=== PATIENT | male | born 1955 | race Caucasian/White ===

== ENCOUNTER 2019-01-10 11:43 | Outpatient (REF) | payer MEDICARE, BC, SELFPAY ==
[2019-01-10 21:48] LABS: Anion Gap 8.4 mmol/L (3-11); BUN 16 mg/dL (7-18); CO2 29.6 mmol/L (21.0-32.0); CREATININE 1.12 mg/dL (0.70-1.30); Chloride 104 mmol/L (98-107); Glucose 96 mg/dL (70-100); Potassium 4.6 mmol/L (3.5-5.1); Sodium 142 mmol/L (136-145)
== END 2019-01-10 12:03 ==
LOC: NCHCN 11:43
PROVIDERS: PCP Internal Medicine; Visit Provider Internal Medicine
DX: I10 Essential (primary) hypertension (principal)
CPT/HCPCS: 80048

== ENCOUNTER 2019-01-11 15:35 | Observation (INO) | payer MEDICARE, BC, SELFPAY ==
[2019-01-11] VITALS (69 sets, daily range): BP systolic 122–176; BP diastolic 76–139; PULSE 56–90; RESP 10–28; TEMP 36.6–36.7; O2SAT 91–99
--- NOTE | 2019-01-11 15:51 | DI.RAD_ITS ---
SYMPTOM/DIAGNOSIS: CHEST PAIN PA AND LATERAL CHEST: The heart is normal in size. The lungs are clear. The mediastinal structures and pleura appear intact. CONCLUSION: Normal chest.
--- NOTE | 2019-01-11 15:59 | ED.GENADUL_ITS ---
Discharge Plan Disposition Patient Disposition: [facility] INPATIENT Condition: Stable Discharge Details Chief Complaint: Chest Pain Clinical Impression: Chest pain, Elevated troponin, Sinus pause Admit Date/Time: 01/11/19 22:01 Admit Provider: Kaiser Chan Attending Provider: Kaiser Chan Primary Care Provider: Michael Sow ED Provider: Arely Villagomez Discharge Data Discharge Date/Time-TO BE ENTERED AT DEPARTURE: 01/11/19 23:50 Medical Decision Making Patient is a 63-year-old male with history of hypertension high cholesterol presents with substernal and left-sided chest pain that started since he awoke this morning. Denies any chest pain at present or well-being here in the ED. Vitals within normal limits. EKG notes a rate of 65, sinus with pause, no acute ST elevation or depression. Differential diagnosis includes ACS, electrolyte abnormality, anxiety, stress. Presentation does not appear consistent with PE or dissection. Will place an IV, screening labs, chest x-ray. Patient does not want to stay in the hospital. He is agreeable to stay for a 3-hour troponin. 1715 --labs and imaging reviewed. Troponin 0.1. Remainder of labs unremarkable. Chest x-ray negative. Will order a 3-hour troponin but will plan for admission overnight pending up or downtrending troponin. 1900 --second troponin 0.19. Repeat EKG unchanged. He does appear to have a sinus pause on EKG, unclear if this is a dropped QRS in front of the P wave or whether this is a PAC. Case discussed with hospitalist -reviewed rhythm strip and there appears to be concern for type II Mobitz -before excepting patient for admission, would like further discussion with [facility] cardiology. 2029 --discussed with [facility] cardiology -does not feel that the there are P waves visible where there is concern for a dropped QRS. Feels that this may be more sinus pause. If there is development of longer pauses or what appears to be a conducted P wave without a QRS, can consult cardiology again. Recommends continue telemetry monitoring and serial troponins. Discussed again with hospitalist and accepts patient for admission. Medical Records Medical records reviewed: Yes I reviewed the patient's medical records. Imaging Data Radiologic Study: Radiologist's impression: XR Chest, 2 Views EXAM DATE/TIME: 01/11/2019 3:52 PM CLINICAL HISTORY: 63 years old, male; Chest pain; Type not specified TECHNIQUE: Imaging protocol: XR of the chest Views: 2 views. COMPARISON: No relevant prior studies available. FINDINGS: Lungs: Unremarkable. No consolidation. Pleural space: Unremarkable. No pleural effusion. No pneumothorax. Heart/Mediastinum: Unremarkable. No cardiomegaly. Bones/joints: Unremarkable for patient's age. IMPRESSION: No acute findings. Lab Data Lab results reviewed: Yes I reviewed the patient's lab results. Laboratory Tests Range/Units 01/11/19 01/11/19 01/11/19 15:48 15:48 18:50 WBC (4.4-10.8) k/cumm 8.74 RBC (4.50-6.00) m/cumm 4.73 Hgb (13.5-17.5) g/dL 16.1 Hct (40.0-50.0) % 45.8 MCV (80-95) fL 96.8 H MCH (27.0-33.0) pg 34.0 H MCHC (32.0-36.0) g/dL 35.2 RDW (11.8-14.1) % 11.8 Plt Count (130-400) x1000/uL 198 MPV (8.0-11.0) fL 10.3 Immature Gran % 0.1 Neutrophils % 59.3 Lymphocytes % 27.5 Monocytes % 10.4 Eosinophils % 2.5 Basophils % 0.2 Absolute Neutrophils (1.2-6.7) k/cumm 5.18 Absolute Lymphocytes (1.2-3.4) k/cumm 2.40 Absolute Monocytes (0.11-0.7) k/cumm 0.91 H Absolute Eosinophils (0.0-0.7) k/cumm 0.22 Absolute Basophils (0.0-0.2) k/cumm 0.02 Sodium (136-145) mmol/L 141 Potassium (3.5-5.1) mmol/L 3.5 D Chloride (98-107) mmol/L 102 Carbon Dioxide (21.0-32.0) mmol/L 30.8 Anion Gap (3-11) mmol/L 8.2 BUN (7-18) mg/dL 12 Creatinine (0.70-1.30) mg/dL 1.09 Estimated GFR/1.73 m2 (mL/min/1.73m2) >= 60.00 Glucose (70-100) mg/dL 91 Calcium (8.5-10.1) mg/dL 9.1 Magnesium (1.8-2.4) mg/dL 1.8 Total Bilirubin (0.2-1.0) mg/dL 0.5 AST (15-37) U/L 18 ALT (16-63) U/L 31 Alkaline Phosphatase (46-116) U/L 49 Troponin I (0.00-0.06) ng/mL 0.10 H* 0.19 H* Total Protein (6.4-8.2) g/dL 8.0 Albumin (3.4-5.0) g/dL 4.0 Range/Units 01/11/19 21:49 WBC (4.4-10.8) k/cumm RBC (4.50-6.00) m/cumm Hgb (13.5-17.5) g/dL Hct (40.0-50.0) % MCV (80-95) fL MCH (27.0-33.0) pg MCHC (32.0-36.0) g/dL RDW (11.8-14.1) % Plt Count (130-400) x1000/uL MPV (8.0-11.0) fL Immature Gran % Neutrophils % Lymphocytes % Monocytes % Eosinophils % Basophils % Absolute Neutrophils (1.2-6.7) k/cumm Absolute Lymphocytes (1.2-3.4) k/cumm Absolute Monocytes (0.11-0.7) k/cumm Absolute Eosinophils (0.0-0.7) k/cumm Absolute Basophils (0.0-0.2) k/cumm Sodium (136-145) mmol/L Potassium (3.5-5.1) mmol/L Chloride (98-107) mmol/L Carbon Dioxide (21.0-32.0) mmol/L Anion Gap (3-11) mmol/L BUN (7-18) mg/dL Creatinine (0.70-1.30) mg/dL Estimated GFR/1.73 m2 (mL/min/1.73m2) Glucose (70-100) mg/dL Calcium (8.5-10.1) mg/dL Magnesium (1.8-2.4) mg/dL Total Bilirubin (0.2-1.0) mg/dL AST (15-37) U/L ALT (16-63) U/L Alkaline Phosphatase (46-116) U/L Troponin I (0.00-0.06) ng/mL 0.28 H* Total Protein (6.4-8.2) g/dL Albumin (3.4-5.0) g/dL ECG Data Attestation: I personally reviewed and interpreted this ECG (s) as follows: Interpretation: #1 -- rate of 65, sinus with pause, no acute ST elevation or depression, TN 132, QTc 410, QRS 94 #2 -- rate of 61, sinus with pause, no acute ST elevation or depression, TN 136, QTc 395, QRS 92. HPI General Mode of arrival: ambulatory . Date/Time Provider Initiated Documentation: 01/11/19 15:57 . Limitations to Documentation: no limitations . Information obtained by: patient . HPI Narrative: Patient is a 63-year-old male with a history of hyperlipidemia, hypertension who presents with sharp substernal chest pain and intermittent shortness of breath since this morning. He states the pain feels like pressure. He denies any pain at present. He states the pain is 6/10 at its worst. He states the pain is been better with walking around but denies any aggravating factors. He denies any symptoms at present other than fatigue. He denies fever, nausea, vomiting, diarrhea, shortness of breath, recent travel, recent surgery, leg pain or swelling. Related Data Home Medications Medication Instructions Recorded Confirmed valsartan 80 mg PO DAILY 01/29/16 01/11/19 Allergies Allergy/AdvReac Type Severity Reaction Status Date / Time No Known Allergies Allergy Unverified 02/01/16 09:19 General Stated Complaint: Chest Pain YUKO: 3 Review of Systems Review of Systems All systems reviewed & are unremarkable except as noted in HPI and below Constitutional Reports as per HPI, Denies chills and Denies fever(s) Eyes Denies blurry vision ENT Denies dizziness, Denies sore throat and Denies throat swelling Cardiovascular Reports chest pain and Denies dyspnea Respiratory Denies cough and Denies dyspnea Gastrointestinal Denies abdominal pain, Denies diarrhea and Denies vomiting Genitourinary Denies hematuria and Denies dysuria Musculoskeletal Denies back pain and Denies numbness Integumentary/Breasts Denies lesions and Denies rash Neurologic Denies dizziness, Denies focal weakness and Denies numbness Allergic/Immunologic Denies throat swelling [facility] Medical History (Updated 01/12/19 @ 10:34 by Michael Sow MD) HTN (hypertension) (Chronic) Hyperlipemia (Acute) Osteoarthritis (Chronic) Statin intolerance (Acute) Surgical History Appendectomy Colonoscopy - IV Sedation (04/19/16) Family History Mother Breast cancer Social History Smoking/Tobacco Use Status: Never Alcohol Intake: current Alcohol Intake frequency: 3 or more drinks per day Alcohol type: hard liquor Drug use: Never Substance use type: does not use Details: pt reports drinking 3 vodka drinks per day Do you feel safe at home: Yes Do you feel safe in your relationship?: Yes Exam Const General: cooperative, healthy appearing and no acute distress HENMT Head: normal to inspection Face and sinus: normal facial exam Eyes General: appearance normal, both eyes and all related structures EOM: EOM intact bilaterally Neck Neck: normal visual inspection and No submandibular swelling Lymphatic: no lymphadenopathy noted Chest Chest: normal inspection of the chest and no tenderness Resp Effort & Inspection: normal respiratory effort and able to speak in complete sentences Auscultation: clear to auscultation bilaterally Cardio Rate: regular rate Rhythm: regular rhythm GI Inspection: normal to inspection Palpation: soft, not firm, not rigid and nontender Auscultation: normal bowel sounds Male General Exam: Yes normal external exam Back/Spine/Pelvis Thoracic/Lumbar Spine: thoracic and lumbar spine normal to inspection Pelvis: no pain with anterior-posterior compression Skin General skin exam: no rashes or lesions noted Neuro General: alert, awake and oriented x3 Cognition: normal cognition Speech: speech normal Motor: muscle tone normal throughout Sensory Exam: no sensory deficits noted Extrem General: normal to inspection, full ROM, normal capillary refill, no calf tenderness bilaterally and no edema Psych Appearance: grossly normal Mental Status: mental status grossly normal Speech and Movement: speech and movement normal Affect: normal affect Course Vital Signs Temperature 97.9 F 01/11/19 15:39 Pulse 64 01/11/19 15:39 Respiratory Rate 20 01/11/19 15:39 Blood Pressure 158/97 H 01/11/19 15:39 Pulse Oximetry 96 01/11/19 15:39 Temperature 97.9 F 01/11/19 15:39 Temperature Source Temporal Artery Scan 01/11/19 15:39 Pulse 64 01/11/19 15:39 Respiratory Rate 20 01/11/19 15:39 Blood Pressure 158/97 H 01/11/19 15:39 Blood Pressure Position Sitting 01/11/19 15:39 Pulse Oximetry 96 01/11/19 15:39 Oxygen Delivery Method Room Air 01/11/19 15:39 Oxygen Flow Rate 0 01/11/19 15:39 Pain Level 0 01/11/19 15:39
[2019-01-11 16:00] LABS: Abs Immature Grans 0.01 k/cumm (0.0-0.09); Absolute Basophil Count 0.02 k/cumm (0.0-0.2); Absolute Eosinophil Count 0.22 k/cumm (0.0-0.7); Absolute Monocyte Count 0.91 k/cumm (0.11-0.7); Absolute Neutrophil Count 5.18 k/cumm (1.2-6.7); Basophils % 0.2; Eosinophils % 2.5; HCT 45.8 % (40.0-50.0); HGB 16.1 g/dL (13.5-17.5); Immature Grans % 0.1; Lymphocytes % 27.5; Mean Corp. HGB Concentration 35.2 g/dL (32.0-36.0); Mean Corpuscular Volume 96.8 fL (80-95); Mean Platelet Volume 10.3 fL (8.0-11.0); Monocytes % 10.4; Neutrophils % 59.3; Platelet Count 198 x1000/uL (130-400); RBC 4.73 m/cumm (4.50-6.00); RBC Distribution Width 11.8 % (11.8-14.1); White Blood Cell Count 8.74 k/cumm (4.4-10.8)
[2019-01-11 16:24] LABS: ALT 31 U/L (16-63); AST 18 U/L (15-37); Alkaline Phosphatase 49 U/L (46-116); Anion Gap 8.2 mmol/L (3-11); BUN 12 mg/dL (7-18); Bilirubin, Total 0.5 mg/dL (0.2-1.0); CO2 30.8 mmol/L (21.0-32.0); CREATININE 1.09 mg/dL (0.70-1.30); Calcium 9.1 mg/dL (8.5-10.1); Chloride 102 mmol/L (98-107); Glucose 91 mg/dL (70-100); Magnesium 1.8 mg/dL (1.8-2.4); Potassium 3.5 mmol/L (3.5-5.1); Sodium 141 mmol/L (136-145)
--- NOTE | 2019-01-11 16:53 | DI.VRAD_ITS ---
EXAM: XR Chest, 2 Views EXAM DATE/TIME: 01/11/2019 3:52 PM CLINICAL HISTORY: 63 years old, male; Chest pain; Type not specified TECHNIQUE: Imaging protocol: XR of the chest Views: 2 views. COMPARISON: No relevant prior studies available. FINDINGS: Lungs: Unremarkable. No consolidation. Pleural space: Unremarkable. No pleural effusion. No pneumothorax. Heart/Mediastinum: Unremarkable. No cardiomegaly. Bones/joints: Unremarkable for patient's age. IMPRESSION: No acute findings. Dictated and Authenticated by: Rosa Manzo MD. Ordering:WIHT Mcgee MD
[2019-01-11] MEDS: Aspirin 325 MG TAB (16:56)
[2019-01-11 19:16] LABS: Troponin I 0.19 ng/mL (0.00-0.06)
--- NOTE | 2019-01-11 21:00 | W.PM.HP.N ---
Date of service: 01/11/19 Time of Service: 21:00 Assessment and Plan (1) Chest pain: Current visit: Yes Status: Acute CP, story and uptrending troponins suggestive of ACS. Patient has already received ASA and remains asymptomatic at this time with normal EKG. If develops further pain or EKG changes will heparinize and plan transfer. Otherwise would advise stress testing. Elevated BP noted. Patient is somewhat anxious and will give dose Ativan. if BP remains elevated will give dose additional anti-hypertensive (pulses on monitor have frequently been in 60s so will avoid beta-jessica). History of Present Illness Chief Complaint: CP Narrative: 63 male with HTN, HLD, reports two episodes today, each lasting about 30 minutes, of a squeezing tightness in chest (uses a clenched fist to describe, so-called Townsend sign). No SOB, diaphoresis or nausea. All occurred at rest, none since arrival here. W/U in ER of note for troponin #1 of 0.10, #2 0.19. EKG with no ST-TW changes.Patient given ASA 325 and admitted for further management. Note that monitor raised question of Type 2 Mobitz but further review, and after discussion with Cardiology, it is clear that this is frequent non-conducted PACs. Review of Systems Review of Systems All systems reviewed & are unremarkable except as noted in HPI and below PFSH Medical History HTN (hypertension) (Chronic) Hx of hyperlipidemia (Acute) Osteoarthritis (Chronic) Surgical History Appendectomy Colonoscopy - IV Sedation (04/19/16) Family History Mother Breast cancer Social History Smoking/Tobacco Use Status: Never Alcohol Intake: current Alcohol Intake frequency: 3 or more drinks per day Alcohol type: hard liquor Drug use: Never Substance use type: does not use Details: pt reports drinking 3 vodka drinks per day Do you feel safe at home: Yes Do you feel safe in your relationship?: Yes Meds Home Medications Medication Instructions Recorded Confirmed Type valsartan 80 mg PO DAILY 01/29/16 01/11/19 History Allergies Allergy/AdvReac Type Severity Reaction Status Date / Time No Known Allergies Allergy Unverified 02/01/16 09:19 Exam Narrative Exam Narrative: 156/98, 85, 20, 36.6. HEENT unremarkable; neck supple without JVD; lungs clear; heart RRR w/o M/R/G; abdomen soft NT; extr: no edema pulses equal Results Labs : 01/11/19 15:48 01/11/19 15:48 Laboratory Results - last 24 hr 01/11/19 01/11/19 01/11/19 15:48 15:48 18:50 WBC 8.74 RBC 4.73 Hgb 16.1 Hct 45.8 MCV 96.8 H MCH 34.0 H MCHC 35.2 RDW 11.8 Plt Count 198 MPV 10.3 Immature Gran % 0.1 Neutrophils % 59.3 Lymphocytes % 27.5 Monocytes % 10.4 Eosinophils % 2.5 Basophils % 0.2 Absolute Neutrophils 5.18 Absolute Lymphocytes 2.40 Absolute Monocytes 0.91 H Absolute Eosinophils 0.22 Absolute Basophils 0.02 Sodium 141 Potassium 3.5 D Chloride 102 Carbon Dioxide 30.8 Anion Gap 8.2 BUN 12 Creatinine 1.09 Estimated GFR/1.73 m2 >= 60.00 Glucose 91 Calcium 9.1 Magnesium 1.8 Total Bilirubin 0.5 AST 18 ALT 31 Alkaline Phosphatase 49 Troponin I 0.10 H* 0.19 H* Total Protein 8.0 Albumin 4.0 Last Vital Signs Temp 36.6 C 01/11/19 15:39 Pulse 64 01/11/19 15:39 Resp 16 01/11/19 17:00 BP 158/97 H 01/11/19 15:39 Pulse Ox 96 01/11/19 15:39
[2019-01-11 22:23] LABS: Troponin I 0.28 ng/mL (0.00-0.06)
[2019-01-11] MEDS: Clopidogrel 300 MG TAB PO (23:45)
[2019-01-11] MEDS: LORazepam 1 MG TAB PO (23:49)
--- NOTE | 2019-01-12 00:43 | NUR.NOTE ---
Patient was admitted to the Med-Surg unit with history of 2 episodes of chest pain and pressure since yesterday, morning. He took tylenol at home and went to lie down and the pain woke him up again. He described the pain has non radiating but squeezing pain lasting for at least 30 minutes. He denies any SOB, nausea, diaphoresis, also the symptoms occurs while resting.
[2019-01-12 03:38] VITALS: BP 162/82; PULSE 63; RESP 17; TEMP 37; O2SAT 96
[2019-01-12 07:13] VITALS: PULSE 83
[2019-01-12 07:20] VITALS: BP 160/78; PULSE 71; RESP 18; TEMP 37.1; O2SAT 95
[2019-01-12 08:10] LABS: PTT Activated 33.6 sec (21.0-31.4)
--- NOTE | 2019-01-12 08:25 | INITIAL_ITS ---
Care Management Initial Assess REASON FOR HOSPITALIZATION:: Chest Pain PAST MEDICAL HISTORY/PAST SURGICAL HISTORY:: HTN, hyperlipidemia, osteoarthritis, appendectomy, colonoscopy PREVIOUS FUNCTIONAL STATUS/SOCIAL/FAMILY SUPPORTS:: Artur resides in [place], [place] with his , Janna. He is employed multimedia editor at [employer] and is independent at baseline. ADVANCE DIRECTIVES:: None on file at [facility]. Has patient been provided with information about the portal?: Yes Did the patient sign up for the portal?: No CODE STATUS:: Full Code INSURANCE COVERAGE / FINANCIAL ISSUES:: Medicare. BC/BS CURRENT HOME/COMMUNITY SERVICES/EQUIPMENT:: No current services or equipment PRIMARY CARE PHYSICIAN:: Michael Sow MD POTENTIAL DISCHARGE NEEDS:: Coordinated transfer. PATIENT/FAMILY EDUCATION NEEDS:: Review transfer instructions. ANTICIPATED BARRIERS TO DISCHARGE:: None identified. TRANSPORTATION:: Via EMS PLAN:: Artur reviewed at interdisciplinary rounds meeting; per MD anticipated transfer to [facility] via EMS coordinated by nursing warehouse traffic supervisor.
[2019-01-12] MEDS: Clopidogrel 75 MG TAB PO (08:32)
[2019-01-12] MEDS: Valsartan 80 MG TAB PO (08:32)
[2019-01-12 08:38] LABS: Troponin I 0.21 ng/mL (0.00-0.06)
--- NOTE | 2019-01-12 10:32 | W.PM.DS.N ---
Date of service: 01/12/19 Time of Service: 10:34 DS: Diagnosis Discharge Diagnosis (1) Chest pain: Status: Acute Asessment and Plan: Patient admitted with 30+ minute episodes x2 of pressure-like central chest pain without radiation or associated symptoms, all resolved since presentation in the ER and no recurrence since admission. (2) Non-STEMI (non-ST elevated myocardial infarction): Status: Acute Asessment and Plan: Pain-free since admission. Telemetry showing PACs and sinus pauses (no AV marianne blocking agents prescribed) but no malignant arrhythmias. He has been maintained on IV heparin, his outpatient dose of valsartan and, received a loading doses of aspirin and clopidogrel in the ER and has been maintained on clopidogrel orally with no bleeding complications. He had no signs of heart failure. His blood pressure has been running somewhat high. Pulse rate on no AV marianne blocking agents ranging from the 60s to 70s. (3) Hyperlipemia: Status: Acute Asessment and Plan: Historically has had LDL levels ranging from 220s to 250, HDL 60-80. He has been treated with statins in the past, severe myalgias and has refused to continue any statin medication for his hyperlipidemia. He has not had a lipid panel checked since 2016 which at that time had a total cholesterol 339 and LDL of 234 and HDL of 80 (4) Statin intolerance: Status: Acute Asessment and Plan: As noted above, severe myalgias and muscle weakness on several statins as tried in the past for his hyperlipidemia. Discharge Plan Disposition Patient Disposition: [facility] Condition: Stable Discharge Details Chief Complaint: Chest Pain Clinical Impression: Chest pain, Elevated troponin, Sinus pause Reason For Visit: CP Admit Date/Time: 01/11/19 22:01 Admit Provider: Kaiser Chan Attending Provider: Kaiser Chan Primary Care Provider: Michael Sow ED Provider: Arely Villagomez Hospital Course Hospital Course: 63-year-old man with a history of hypertension and hyperlipidemia (statin intolerant) with a strong family history of premature coronary artery disease presented to the emergency room with 2 discrete episodes of midsternal pressure pain without radiation or other associated symptoms other than general fatigue. He had no chest pain after arrival in the emergency room. His initial ECG showed no acute ST T wave ischemic changes but did have PACs and sinus pauses. His initial troponin was 0.1 rising to a peak of 0.28 and dropping to 0.21 on the morning of transfer. He was started on heparin drip after receiving aspirin and clopidogrel load in the emergency room. He had no recurrence of chest pain, PACs on telemetry, somewhat elevated blood pressure, no symptomatic dysrhythmias bradycardia or tachycardia and no signs or symptoms of heart failure. He has been accepted at [facility] on the cardiology service for coronary angiography and further treatment of his acute coronary syndrome/non-ST elevation NV. Medications on transfer include heparin drip at 1150 units/h, valsartan 80 mg daily clopidogrel 75 mg daily. Home Meds and New Rx's Prescriptions: No Action valsartan 80 MG tablet 80 mg PO DAILY RF: 0 Discharge Instructions Stand Alone Forms: Nursing Discharge Form Activity:: Activity as Tolerated Equipment/Supplies:: No Equipment Needed Diet:: As Tolerated Discharge Orders Discharge Orders: Discharge Order (Routine); Ordered 01/12/19 Ordered By: Michael Sow DS: Summary Quality: AMI Clinical Trial Participant: No Exam Narrative Exam Narrative: On the morning of transfer he is in good spirits and in no distress. Afebrile with blood pressures in the 160/70 range pulse rate in the 70s and regular, SaO2 on room air 95%. No facial asymmetry. Speech is clear. No JVD. Lungs are clear. Mostly regular heart rhythm but fairly frequent ectopic beats, no murmur S3-S4 or rub heard. Active bowel sounds with no abdominal tenderness. Warm extremities with 1-2+ dorsalis pedis pulses in both feet with no pitting edema. Symmetric movement of all extremities. He sits up and walks unassisted. DS: Data Vitals/I&O Vitals and I&O: Vital Signs Temperature 37.1 C 01/12/19 07:20 Temperature Source Tympanic 01/12/19 07:20 Pulse 71 01/12/19 07:20 Pulse Rhythm Irregular 01/12/19 03:53 Pulse 79 01/11/19 22:31 Respiratory Rate 18 01/12/19 07:20 Respiratory Effort Non-Labored 01/12/19 03:53 Respiratory Depth Normal 01/12/19 03:53 Respiratory Pattern Normal 01/12/19 03:53 Blood Pressure 160/78 H 01/12/19 07:20 Blood Pressure Mean 100 01/11/19 22:31 Blood Pressure Position Sitting 01/11/19 15:39 Pulse Oximetry 95 01/12/19 07:20 Oxygen Delivery Method Room Air 01/12/19 07:20 Oxygen Flow Rate 0 01/12/19 07:20 Pain Level 0 01/12/19 07:20 Intake & Output 01/11/19 01/11/19 01/12/19 11:59 23:59 11:59 Intake Total 416.833 / 416.833 Balance 416.833 / 416.833 Weight 85.1 kg Intake: IV 96.833 / 96.833 Oral 320 / 320 Other: Urine Color Yellow Urine Appearance Clear Clear Voiding Methods Toilet Labs on day of discharge: Labs from last 24 hours 01/12/19 01/12/19 01/12/19 14:25 07:26 07:26 WBC RBC Hgb Hct MCV MCH MCHC RDW Plt Count MPV Immature Gran % Neutrophils % Lymphocytes % Monocytes % Eosinophils % Basophils % Absolute Neutrophils Absolute Lymphocytes Absolute Monocytes Absolute Eosinophils Absolute Basophils APTT Pending 33.6 H Sodium Potassium Chloride Carbon Dioxide Anion Gap BUN Creatinine Estimated GFR/1.73 m2 Glucose Calcium Magnesium Total Bilirubin AST ALT Alkaline Phosphatase Troponin I 0.21 H* Total Protein Albumin 01/12/19 01/11/19 01/11/19 05:35 23:15 21:49 WBC RBC Hgb Hct MCV MCH MCHC RDW Plt Count MPV Immature Gran % Neutrophils % Lymphocytes % Monocytes % Eosinophils % Basophils % Absolute Neutrophils Absolute Lymphocytes Absolute Monocytes Absolute Eosinophils Absolute Basophils APTT Cancelled Sodium Potassium Chloride Carbon Dioxide Anion Gap BUN Creatinine Estimated GFR/1.73 m2 Glucose Calcium Magnesium Total Bilirubin AST ALT Alkaline Phosphatase Troponin I Cancelled 0.28 H* Total Protein Albumin 01/11/19 01/11/19 01/11/19 18:50 15:48 15:48 WBC 8.74 RBC 4.73 Hgb 16.1 Hct 45.8 MCV 96.8 H MCH 34.0 H MCHC 35.2 RDW 11.8 Plt Count 198 MPV 10.3 Immature Gran % 0.1 Neutrophils % 59.3 Lymphocytes % 27.5 Monocytes % 10.4 Eosinophils % 2.5 Basophils % 0.2 Absolute Neutrophils 5.18 Absolute Lymphocytes 2.40 Absolute Monocytes 0.91 H Absolute Eosinophils 0.22 Absolute Basophils 0.02 APTT Sodium 141 Potassium 3.5 D Chloride 102 Carbon Dioxide 30.8 Anion Gap 8.2 BUN 12 Creatinine 1.09 Estimated GFR/1.73 m2 >= 60.00 Glucose 91 Calcium 9.1 Magnesium 1.8 Total Bilirubin 0.5 AST 18 ALT 31 Alkaline Phosphatase 49 Troponin I 0.19 H* 0.10 H* Total Protein 8.0 Albumin 4.0 PFSH Medical History HTN (hypertension) (Chronic) Hx of hyperlipidemia (Acute) Osteoarthritis (Chronic) Surgical History Appendectomy Colonoscopy - IV Sedation (04/19/16) Family History Mother Breast cancer Social History Smoking/Tobacco Use Status: Never Alcohol Intake: current Alcohol Intake frequency: 3 or more drinks per day Alcohol type: hard liquor Drug use: Never Substance use type: does not use Details: pt reports drinking 3 vodka drinks per day Do you feel safe at home: Yes Do you feel safe in your relationship?: Yes
[2019-01-12 11:38] VITALS: PULSE 85
== END 2019-01-12 11:16 | disposition short-term general hospital (02) ==
LOC: ER 21:56 → MS 01-12 00:13
PROVIDERS: Admitting Provider General Practice; Emergency Provider Physician Assistant; PCP Internal Medicine; Visit Provider Internal Medicine
DX: I21.4 Non-ST elevation (NSTEMI) myocardial infarction (principal); I49.1 Atrial premature depolarization; E78.5 Hyperlipidemia, unspecified; Z82.49 Family history of ischemic heart disease and other diseases of the circulatory system; I10 Essential (primary) hypertension
CPT/HCPCS: 36415; 80053; 93005; 99222; 99239; 99285; 71046; 83735; 84484; 85025; 85730; 93010; 99219; G0378

== ENCOUNTER 2019-01-29 15:04 | Outpatient (RCR) | payer MEDICARE, BC, SELFPAY | END 2019-02-04 23:59 | disposition home or self-care (01) | LOC: CR 15:04 | PROVIDERS: PCP Internal Medicine; Visit Provider Family Medicine | DX: Z51.89 Encounter for other specified aftercare (principal) ==

== ENCOUNTER 2019-02-05 04:42 | Outpatient (RCR) | payer MEDICARE, BC, SELFPAY | END 2019-03-07 23:59 | disposition home or self-care (01) | LOC: CR 04:42 | PROVIDERS: PCP Internal Medicine; Visit Provider Family Medicine | DX: Z51.89 Encounter for other specified aftercare (principal) ==

== ENCOUNTER 2019-03-06 11:36 | Outpatient (RCR) | payer MEDICARE, BC, SELFPAY | END 2019-03-07 23:59 | disposition home or self-care (01) | LOC: CR 11:36 | PROVIDERS: PCP Internal Medicine; Visit Provider Family Medicine | DX: Z51.89 Encounter for other specified aftercare (principal); I25.2 Old myocardial infarction | CPT/HCPCS: S9472 ==

== ENCOUNTER 2019-03-29 12:57 | Outpatient (REF) | payer MEDICARE, BC, SELFPAY ==
[2019-03-29 21:08] LABS: Calculated LDL 254 mg/dL; Cholesterol 345 mg/dL (<200); HDL Cholesterol 68 mg/dL (40-60); Triglyceride 117 mg/dL (<150)
== END 2019-03-29 13:17 ==
LOC: NCHCN 12:57
PROVIDERS: PCP Internal Medicine; Visit Provider Internal Medicine
DX: I25.2 Old myocardial infarction (principal)
CPT/HCPCS: 80061

== ENCOUNTER 2019-04-03 11:40 | Outpatient (RCR) | payer MEDICARE, BC, SELFPAY | END 2019-04-06 23:59 | disposition home or self-care (01) | LOC: CR 11:40 | PROVIDERS: PCP Internal Medicine; Visit Provider Family Medicine | DX: I25.2 Old myocardial infarction (principal); Z51.89 Encounter for other specified aftercare | CPT/HCPCS: S9472 ==

== ENCOUNTER 2019-05-03 14:23 | Outpatient (RCR) | payer MEDICARE, BC, SELFPAY | END 2019-05-07 23:59 | disposition home or self-care (01) | LOC: CR 14:23 | PROVIDERS: PCP Internal Medicine; Visit Provider Family Medicine | DX: I25.2 Old myocardial infarction (principal); Z51.89 Encounter for other specified aftercare | CPT/HCPCS: S9472 ==

== ENCOUNTER 2019-05-23 10:42 | Outpatient (REF) | payer MEDICARE, BC, SELFPAY ==
[2019-05-23 12:42] LABS: Calculated LDL 105 mg/dL; Cholesterol 217 mg/dL (<200); Glucose 94 mg/dL (74-106); HDL Cholesterol 101 mg/dL (40-60); Triglyceride 57 mg/dL (<150)
[2019-05-24 16:17] LABS: Lipoprotein (a) 62 mg/dL (<=30)
== END 2019-05-23 11:02 ==
LOC: NCHCN 10:42
PROVIDERS: PCP Internal Medicine; Visit Provider Internal Medicine
DX: I10 Essential (primary) hypertension (principal); E78.5 Hyperlipidemia, unspecified; I25.10 Atherosclerotic heart disease of native coronary artery without angina pectoris; E78.01 Familial hypercholesterolemia
CPT/HCPCS: 80061; 82947; 83695

== ENCOUNTER 2019-06-07 07:00 | Outpatient (RCR) | payer MEDICARE, BC, SELFPAY | END 2019-06-07 23:59 | disposition home or self-care (01) | LOC: CR 07:00 | PROVIDERS: PCP Internal Medicine; Visit Provider Family Medicine | DX: I25.2 Old myocardial infarction (principal); Z51.89 Encounter for other specified aftercare | CPT/HCPCS: S9472 ==

== ENCOUNTER 2019-06-24 13:25 | Outpatient (RCR) | payer MEDICARE, BC, SELFPAY | END 2019-07-06 23:59 | disposition home or self-care (01) | LOC: CR 13:25 | PROVIDERS: PCP Internal Medicine; Visit Provider Family Medicine | DX: I25.2 Old myocardial infarction (principal); Z51.89 Encounter for other specified aftercare | CPT/HCPCS: S9472 ==

== ENCOUNTER 2019-11-20 09:36 | Outpatient (REF) | payer MEDICARE, BC, SELFPAY ==
[2019-11-20 19:36] LABS: Calculated LDL 96 mg/dL (<100); Cholesterol 197 mg/dL (<200); Glucose 99 mg/dL (74-106); HDL Cholesterol 83 mg/dL (40-60); Triglyceride 93 mg/dL (<150)
== END 2019-11-20 09:56 ==
LOC: NCHCN 09:36
PROVIDERS: PCP Internal Medicine; Visit Provider Internal Medicine
DX: E78.01 Familial hypercholesterolemia (principal); R73.9 Hyperglycemia, unspecified
CPT/HCPCS: 80061; 82947

== ENCOUNTER 2021-01-05 13:01 | Outpatient (REF) | payer MEDICARE, BC, SELFPAY ==
[2021-01-05 15:49] LABS: Anion Gap 3.4 mmol/L (3-11); BUN 14 mg/dL (7-18); CO2 32.6 mmol/L (21.0-32.0); CREATININE 1.2 mg/dL (0.70-1.30); Calcium 9.8 mg/dL (8.5-10.1); Chloride 104 mmol/L (98-107); Glucose 105 mg/dL (74-106); Potassium 5.4 mmol/L (3.5-5.1); Sodium 140 mmol/L (136-145)
[2021-01-05 16:00] LABS: Calculated LDL 87 mg/dL (<100); Cholesterol 194 mg/dL (<200); HDL Cholesterol 90 mg/dL (40-60); Triglyceride 85 mg/dL (<150)
== END 2021-01-05 13:02 | disposition home or self-care (01) ==
LOC: NCHCN 13:01
PROVIDERS: PCP Internal Medicine; Visit Provider Internal Medicine
DX: I10 Essential (primary) hypertension (principal); E78.01 Familial hypercholesterolemia; E78.5 Hyperlipidemia, unspecified
CPT/HCPCS: 80048; 80061

== ENCOUNTER 2021-01-21 10:08 | Outpatient (REF) | payer MEDICARE, BC, SELFPAY ==
[2021-01-21 14:06] LABS: Anion Gap 8.9 mmol/L (3-11); BUN 17 mg/dL (7-18); CO2 29.1 mmol/L (21.0-32.0); CREATININE 1.3 mg/dL (0.70-1.30); Calcium 9.5 mg/dL (8.5-10.1); Chloride 105 mmol/L (98-107); Estimated GFR 55.06 (mL/min/1.73m2); Glucose 101 mg/dL (74-106); Potassium 5.1 mmol/L (3.5-5.1); Sodium 143 mmol/L (136-145)
== END 2021-01-21 10:09 | disposition home or self-care (01) ==
LOC: NCHCN 10:08
PROVIDERS: PCP Internal Medicine; Referring Provider Internal Medicine; Visit Provider Internal Medicine
DX: I10 Essential (primary) hypertension (principal)
CPT/HCPCS: 80048

== ENCOUNTER 2021-08-23 09:15 | Outpatient (CLI) | payer MEDICARE, BC, SELFPAY ==
--- NOTE | 2021-08-23 09:15 | RT.EKG_ITS ---
APPROVED REPORT Exam: Resting ECG Reason for Exam: NE Patient Location: O HR:66 bpm ECG Measurements Heart Rate 66 AXIS UT 133 P -26 QRSd 88 QRS -1 QT 429 T 11 QTc 450 Conclusion Sinus rhythm...normal P axis, V-rate 50- 99 Abnormal R-wave progression, early transition...QRS area>0 in V2
== END 2021-08-23 09:16 | disposition home or self-care (01) ==
LOC: DI.CARD 09:15
PROVIDERS: PCP Internal Medicine; Visit Provider Internal Medicine Cardiovascular Disease
DX: I21.4 Non-ST elevation (NSTEMI) myocardial infarction (principal); I25.10 Atherosclerotic heart disease of native coronary artery without angina pectoris; I10 Essential (primary) hypertension
CPT/HCPCS: 93010

== ENCOUNTER → 2021-08-23 10:28 | Outpatient (BNVA) | payer MEDICARE, BC, SELFPAY | PROVIDERS: PCP Internal Medicine; Referring Provider Internal Medicine; Visit Provider Internal Medicine Cardiovascular Disease | DX: I25.10 Atherosclerotic heart disease of native coronary artery without angina pectoris (principal); I10 Essential (primary) hypertension; I25.2 Old myocardial infarction; E78.5 Hyperlipidemia, unspecified | CPT/HCPCS: 93005; 99203; 99214 ==

== ENCOUNTER 2022-01-03 16:40 | Outpatient (REF) | payer MEDICARE, BC, SELFPAY ==
[2022-01-03 18:04] LABS: Anion Gap 10.4 mmol/L (3-11); BUN 15 mg/dL (7-18); CO2 29.6 mmol/L (21.0-32.0); CREATININE 1.1 mg/dL (0.70-1.30); Calcium 9.3 mg/dL (8.5-10.1); Calculated LDL 82 mg/dL (<100); Chloride 104 mmol/L (98-107); Cholesterol 194 mg/dL (<200); Estimated GFR 73.12 (mL/min/1.73m2); Glucose 95 mg/dL (74-106); HDL Cholesterol 92 mg/dL (40-60); Potassium 4.9 mmol/L (3.5-5.1); Sodium 144 mmol/L (136-145); Triglyceride 102 mg/dL (<150)
== END 2022-01-03 16:41 | disposition home or self-care (01) ==
LOC: NCHCN 16:40
PROVIDERS: PCP Internal Medicine; Visit Provider Internal Medicine
DX: I25.10 Atherosclerotic heart disease of native coronary artery without angina pectoris (principal)
CPT/HCPCS: 80048; 80061

== ENCOUNTER → 2022-01-05 01:43 | Outpatient (CLI) | payer MEDICARE, BC, SELFPAY ==
--- NOTE | 2022-01-05 11:17 | DI.RAD_ITS ---
Exam(s) XR KNEE RT 3V AP,LAT,KIRT EXAM: XR KNEE RT 3V AP,LAT,KIRT CLINICAL HISTORY: OSTEOARTHRITIS RT KNEE, M17.9. TECHNIQUE: 2D digital imaging was performed. COMPARISON: CR LEFT KNEE 3 VIEW COMPLETE from 04/07/2010 FINDINGS: 3 views No evidence of fracture although there does appear to be a small joint effusion. Mild narrowing of the medial compartment is noted. No obvious narrowing of the lateral compartment. No osteochondral defects evident. Minimal findings in the patellofemoral compartment. Vascular rhoda cifications noted in the popliteal artery and runoff vessels of the calf. IMPRESSION: Mild degenerative changes. DATA REPOSITORY: RADIATION DOSE DELIVERED:
== END ==
PROVIDERS: PCP Internal Medicine; Visit Provider Internal Medicine
DX: M25.561 Pain in right knee (principal); M17.11 Unilateral primary osteoarthritis, right knee; M25.461 Effusion, right knee
CPT/HCPCS: 73562

== ENCOUNTER → 2022-01-27 10:43 | Outpatient (BNVA) | payer MEDICARE, BC, SELFPAY | PROVIDERS: PCP Internal Medicine; Referring Provider Internal Medicine; Visit Provider Student in an Organized Health Care Education/Training Program | DX: M17.11 Unilateral primary osteoarthritis, right knee (principal) | CPT/HCPCS: 20610; 99213; J1040 ==

== ENCOUNTER → 2022-02-21 13:28 | Outpatient (BNVA) | payer MEDICARE, BC, SELFPAY | PROVIDERS: PCP Internal Medicine; Referring Provider Internal Medicine; Visit Provider Internal Medicine Cardiovascular Disease | DX: Z95.5 Presence of coronary angioplasty implant and graft (principal); I25.2 Old myocardial infarction; I25.10 Atherosclerotic heart disease of native coronary artery without angina pectoris; I10 Essential (primary) hypertension; E78.5 Hyperlipidemia, unspecified | CPT/HCPCS: 99214 ==

== ENCOUNTER 2022-03-22 10:30 | Outpatient (REF) | payer MEDICARE, BC, SELFPAY ==
[2022-03-22 15:08] LABS: Anion Gap 4.7 mmol/L (3-11); BUN 18 mg/dL (7-18); CO2 33.3 mmol/L (21.0-32.0); CREATININE 1.2 mg/dL (0.70-1.30); Calcium 10.2 mg/dL (8.5-10.1); Calculated LDL 88 mg/dL (<100); Chloride 103 mmol/L (98-107); Cholesterol 212 mg/dL (<200); Estimated GFR 65.87 (mL/min/1.73m2); Glucose 100 mg/dL (74-106); HDL Cholesterol 107 mg/dL (40-60); Potassium 5.4 mmol/L (3.5-5.1); Sodium 141 mmol/L (136-145); Triglyceride 89 mg/dL (<150)
== END 2022-03-22 10:31 | disposition home or self-care (01) ==
LOC: NCHCN 10:30
PROVIDERS: PCP Internal Medicine; Visit Provider Internal Medicine
DX: E78.01 Familial hypercholesterolemia (principal); R73.9 Hyperglycemia, unspecified
CPT/HCPCS: 80048; 80061

== ENCOUNTER → 2022-05-19 09:35 | Outpatient (BNVA) | payer MEDICARE, BC, SELFPAY | PROVIDERS: PCP Internal Medicine; Referring Provider Internal Medicine; Visit Provider Student in an Organized Health Care Education/Training Program | DX: M17.11 Unilateral primary osteoarthritis, right knee (principal) | CPT/HCPCS: 20610; J1040 ==

== ENCOUNTER 2022-10-12 10:56 | Outpatient (REF) | payer MEDICARE, BC, SELFPAY ==
[2022-10-12 15:26] LABS: ALT 23 U/L (16-63); AST 25 U/L (15-37); Albumin 3.9 g/dL (3.4-5.0); Alkaline Phosphatase 50 U/L (46-116); BUN 12 mg/dL (7-18); Bilirubin, Total 0.5 mg/dL (0.2-1.0); CREATININE 1.2 mg/dL (0.70-1.30); Calcium 9.5 mg/dL (8.5-10.1); Chloride 101 mmol/L (98-107); Estimated GFR 65.46 (mL/min/1.73m2); Glucose 104 mg/dL (74-106); Potassium 4.4 mmol/L (3.5-5.1); Sodium 138 mmol/L (136-145); Total Protein 7.7 g/dL (6.4-8.2)
== END 2022-10-12 10:57 | disposition home or self-care (01) ==
LOC: NCHCN 10:56
PROVIDERS: PCP Internal Medicine; Visit Provider Family Medicine
DX: I25.10 Atherosclerotic heart disease of native coronary artery without angina pectoris (principal)
CPT/HCPCS: 80053

== ENCOUNTER → 2022-10-14 10:15 | Outpatient (BNVA) | payer MEDICARE, BC, SELFPAY | PROVIDERS: PCP Internal Medicine; Referring Provider Internal Medicine; Visit Provider Student in an Organized Health Care Education/Training Program | DX: M17.11 Unilateral primary osteoarthritis, right knee (principal) | CPT/HCPCS: 99213 ==

== ENCOUNTER → 2022-11-24 13:30 | Outpatient (BNVA) | payer MEDICARE, BC, SELFPAY | PROVIDERS: PCP Internal Medicine; Visit Provider Internal Medicine Cardiovascular Disease | DX: I25.10 Atherosclerotic heart disease of native coronary artery without angina pectoris (principal); I10 Essential (primary) hypertension; E78.5 Hyperlipidemia, unspecified | CPT/HCPCS: 99214 ==

== ENCOUNTER → 2023-01-27 08:06 | Outpatient (BNVA) | payer MEDICARE, BC, SELFPAY | PROVIDERS: PCP Internal Medicine; Referring Provider Internal Medicine; Visit Provider Student in an Organized Health Care Education/Training Program | DX: M17.11 Unilateral primary osteoarthritis, right knee (principal) | CPT/HCPCS: 99213 ==

== ENCOUNTER 2023-02-23 04:49 | Outpatient (CLI) | payer MEDICARE, BC, SELFPAY ==
[2023-02-23 15:22] LABS: HCT 44.7 % (40.0-50.0); HGB 15.4 g/dL (13.5-17.5); MCH 33.7 pg (27.0-33.0); MCHC 34.5 % (32.0-36.0); MCV 98 fL (80-95); MPV 9.8 fL (8.0-11.0); Platelet Count 192 10^3/uL (130-400); RBC 4.57 10^6/uL (4.36-5.78); RDW 12.2 % (11.8-14.1); RDW-SD 43.8 fL; WBC 8.18 10^3/uL (4.4-10.8)
[2023-02-23 16:51] LABS: Anion Gap 6.6 mmol/L (3-11); BUN 25 mg/dL (7-18); CO2 32.4 mmol/L (21.0-32.0); CREATININE 1.4 mg/dL (0.70-1.30); Calcium 9.7 mg/dL (8.5-10.1); Chloride 101 mmol/L (98-107); Estimated GFR 54.41 (mL/min/1.73m2); Glucose 124 mg/dL (74-106); Potassium 4.6 mmol/L (3.5-5.1); Sodium 140 mmol/L (136-145)
== END 2023-02-23 04:50 | disposition home or self-care (01) ==
LOC: LBO 04:49
PROVIDERS: PCP Internal Medicine; Visit Provider Student in an Organized Health Care Education/Training Program
DX: M17.11 Unilateral primary osteoarthritis, right knee (principal); Z01.818 Encounter for other preprocedural examination
CPT/HCPCS: 36415; 80048; 85027; 73560; 77073

== ENCOUNTER 2023-02-23 15:05 | Outpatient (CLI) | payer MEDICARE, BC, SELFPAY ==
--- NOTE | 2023-02-23 14:00 | DI.RAD_ITS ---
Exam(s) XR STANDING ALIGNMENT XR KNEE RT 1V EXAM: XR STANDING ALIGNMENT and XR knee RT 1 V CLINICAL HISTORY: PRE OP RIGHT TKR. TECHNIQUE: 2D digital imaging was performed. Five images were obtained. COMPARISON: CR XR KNEE RT 3V AP,LAT,KIRT from 01/05/2022 FINDINGS: BONES: There are degenerative changes of the hips, left greater than right. Mild degenerative change s are seen in the right knee characterized by joint space narrowing and spurring. There is a small j oint right knee joint effusion. The left knee is well maintained. There is atherosclerosis present. The ankles are well maintained.There is no significant leg length discrepancy. SOFT TISSUE: Normal. IMPRESSION: Degenerative changes seen in the right knee. Small right joint effusion. DATA REPOSITORY: RADIATION DOSE DELIVERED:
== END 2023-02-23 15:06 | disposition home or self-care (01) ==
LOC: DIORS 15:05
PROVIDERS: PCP Internal Medicine; Referring Provider Internal Medicine; Visit Provider Physician Assistant
DX: M17.11 Unilateral primary osteoarthritis, right knee (principal)
CPT/HCPCS: 73560; 77073

== ENCOUNTER 2023-03-14 07:14 | Day surgery (SDC) | payer MEDICARE, BC, SELFPAY ==
[2023-03-14] VITALS (8 sets, daily range): BP systolic 117–165; BP diastolic 79–100; PULSE 59–78; RESP 16–22; TEMP 36.1–36.7; O2SAT 97–100; BMI 25.9
[2023-03-14] MEDS: Gabapentin 300 MG CAP PO (07:54)
[2023-03-14] MEDS: Celecoxib 200 MG CAP 400 MG PO (07:54)
[2023-03-14] MEDS: Acetaminophen 500 MG TAB 1000 MG PO (07:54)
--- NOTE | 2023-03-14 07:54 | W.ANESPRE ---
General Info Date of Service Date Performed: 03/14/23 Height: 5 ft 10 in Weight: 82 kg Body Mass Index (BMI): 25.9 Surgical Procedure: Operation Date: 03/14/23 09:40 Proposed Procedure Side Surgeon p Knee Total Arthroplasty Right Joseluis Ohara MD Meds Allergies and Home Medications Allergies Allergy/AdvReac Type Severity Reaction Status Date / Time atorvastatin Allergy Severe Verified 03/14/23 07:23 Home Medication Medication Instructions Recorded aspirin 81 mg tablet,delayed 81 mg PO DAILY 07/13/21 release (Adult Aspirin Regimen) ezetimibe 10 mg tablet 10 mg PO DAILY 07/13/21 metoprolol succinate 50 mg 50 mg PO DAILY 07/13/21 tablet,extended release 24 hr nitroglycerin 0.4 mg sublingual 0.4 mg sublingual Q5M PRN 07/13/21 tablet (Nitrostat) alirocumab 150 mg/mL subcutaneous 150 mg subcut Q2W 08/23/21 pen injector (Praluent Pen) valsartan 160 mg tablet 160 mg PO DAILY 05/19/22 Current Visit Medications: Current Medications Generic Name Dose Route Start Last Admin Trade Name Freq PRN Reason Stop Dose Admin Acetaminophen 1,000 mg 03/14/23 06:00 Acetaminophen 500 Mg Tab PO 03/14/23 16:00 PREOP TERE Celecoxib 400 mg 03/14/23 06:00 Celecoxib 200 Mg Cap PO 03/14/23 16:00 PREOP TERE Gabapentin 300 mg 03/14/23 06:00 Gabapentin 300 Mg Cap PO 03/14/23 16:00 PREOP TERE Hydromorphone HCl 0.5 mg 03/14/23 07:25 Hydromorphone 2 Mg/Ml Syr IVP 04/13/23 07:24 Q2H PRN PRN Tranexamic Acid 1,000 mg/ 60 mls @ 360 mls/hr 03/14/23 06:00 Sodium Chloride IVPB 03/14/23 16:00 PREOP TERE Ringer's Solution 1,000 mls @ 80 mls/hr 03/14/23 06:00 IV 04/12/23 23:59 INFUSION TERE Cefazolin Sodium/Dextrose 2 gm in 50 mls @ 100 mls/hr 03/14/23 06:00 Ancef Duplex IVPB 04/12/23 23:59 PREOP TERE Cefazolin Sodium/Dextrose 1 gm in 50 mls @ 100 mls/hr 03/14/23 08:00 Ancef Duplex IVPB 03/15/23 00:29 Q8H TERE IV Miscellaneous Supplies 1 each 03/14/23 06:00 Iv Access IV 04/12/23 23:59 DIRECTED TERE Oxycodone HCl 0 mg 03/14/23 07:25 Oxycodone 5 Mg Tab PO 04/13/23 07:24 Q3H PRN PRN Pain Sodium Chloride 0 ml 03/14/23 06:00 Normal Saline Flush 10 Ml Syr IV 04/12/23 23:59 PRN PRN Sodium Chloride 0 ml 03/14/23 06:00 Normal Saline 10 Ml Vial IJ 04/12/23 23:59 DIRECTED PRN Sterile Water 0 ml 03/14/23 06:00 Water,Injection,Sterile 10 Ml Vial IJ 04/12/23 23:59 DIRECTED PRN PFSH Active Problems Active Problems: Problem Status Onset Code Osteoarthritis of right knee M17.11 ASCVD (arteriosclerotic cardiovascular disease) I25.10 Osteoarthritis M19.90 HTN (hypertension) I10 Left knee pain M25.562 Hip arthritis M16.10 Statin intolerance Z78.9 Hyperlipemia E78.5 Non-STEMI (non-ST elevated myocardial infarction) I21.4 Chest pain R07.9 Medical History Medical History Tubular adenoma of colon (04/19/16) Surgical History Surgical History 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 Status post arthroscopy of right knee x2 Colonoscopy - IV Sedation (04/19/16) Appendectomy Tobacco Smoking/Tobacco Use Status: Former Tobacco Use Alcohol Alcohol Intake: current Alcohol intake frequency: 3 or more drinks per day Alcohol type: hard liquor Substance Use Substance use: Never Substance use type: does not use Vital Signs and Lab Results Vital Signs Most Recent Vital Signs in EMR: Most Recent Vital Signs Temp Pulse Resp BP Pulse Ox 36.7 C 76 16 149/100 H 97 03/14/23 07:23 03/14/23 07:23 03/14/23 07:23 03/14/23 07:23 03/14/23 07:23 Lab Results Blood Type / Crossmatch: No Data to Display Complete Blood Count: White Blood Count 8.18 10^3/uL (4.4-10.8) 02/23/23 15:03 Red Blood Count 4.57 10^6/uL (4.36-5.78) 02/23/23 15:03 Hemoglobin 15.4 g/dL (13.5-17.5) 02/23/23 15:03 Hematocrit 44.7 % (40.0-50.0) 02/23/23 15:03 Platelet Count 192 10^3/uL (130-400) 02/23/23 15:03 Complete Metabolic Panel: Sodium 140 mmol/L (136-145) 02/23/23 15:03 Potassium 4.6 mmol/L (3.5-5.1) 02/23/23 15:03 Chloride 101 mmol/L (98-107) 02/23/23 15:03 Carbon Dioxide 32.4 mmol/L (21.0-32.0) H 02/23/23 15:03 BUN 25 mg/dL (7-18) H 02/23/23 15:03 Creatinine 1.4 mg/dL (0.70-1.30) H 02/23/23 15:03 Est GFR (CKD-EPI 2020) 54.41 (mL/min/1.73m2) 02/23/23 15:03 Calcium 9.7 mg/dL (8.5-10.1) 02/23/23 15:03 Glucose 124 mg/dL (74-106) H 02/23/23 15:03 Liver Function Panel: No Data to Display Coagulation Panel: No Data to Display Cardiac Panel: No Data to Display Arterial Blood Gas: No Data to Display Venous Blood Gas: No Data to Display Pancreas Panel: No Data to Display Thyroid Panel: No Data to Display Infectious Disease: No Data to Display Blood Cultures: No Data to Display Toxicology Panel: No Data to Display Imaging and Studies Imaging and Studies Study information below may be from another EMR and interpreted by another provider. Please see original notes in EMR for more complete details. EKG Summary: Conclusion Sinus rhythm...normal P axis, V-rate 50- 99 Abnormal R-wave progression, early transition...QRS area>0 in V2 08/23/21 Anesthesia Assessment and Plan Anesthesia History Personal History: No History of Anesthesia Complications Family History: No Family History of Anesthesia Complications Exercise Tolerance Exercise Tolerance: Metabolic Equivalents>4 Pertinent Negatives Pertinent Negatives: No Symptoms of GERD, No Major Cardiovascular Symptoms or Complaints and No Major Pulmonary Symptoms or Complaints Cardiac & Pulmonary Exam Cardiac Exam: Normal S1/S2 Heart Sounds Pulmonary Exam: Clear Bilateral Breath Sounds Implantable Cardiac Device Does patient have a Pacemaker or an ICD?: No Airway Exam Known Difficult Airway: No Mallampati Class: 2 Mouth Opening: Normal (> 3cm) Thyromental Distance: Greater than 3 cm Neck Range of Motion: Full ROM Neck Circumference: Normal Teeth Condition: Normal Dentition and Removable Dentures/Plates Upper (partial) ASA Classification ASA Score: ASA 2 Emergency Case?: No NPO Status NPO Status: NPO Clears >2 hours, Solids >8 hours Anesthesia Plan Resuscitation Status: Full Code Anesthesia Technique: Spinal Anesthesia Airway Planned: Natural Airway Pain Management: Surgeon and patient request nerve block Monitors Used: Standard Monitors
[2023-03-14] MEDS: Lactated Ringers 1,000 ML 80 ML IV (08:15)
--- NOTE | 2023-03-14 08:30 | W.ANESNERVE ---
Nerve Block Single Injection Procedure Date and Time Date Performed: 03/14/23 Procedure Start: 08:22 Location Where Procedure Performed Procedure Location: Day Surgery Unit Reason Performed: Postoperative Analgesia Requesting Provider: Joseluis Ohara Timeout Performed Timeout Performed: Yes Monitoring Used ECG, Blood Pressure, SpO2 and See EMR for corresponding vital signs Sterility Sterility: Hand Hygiene, Surgical Cap, Surgical Mask, Sterile Gloves, Sterile Drape/Sheet and Chlorhexidine Sedation Given During Procedure Sedation Given (Indicate Dose Given): No Sedation given Patient Mental Status Patient Mental Status: Awake Nerve Block 1st Nerve Block: Laterality: Right Block Type: Adductor Canal Ultrasound Image Saved?: Yes Needle / Catheter Used: 100mm SonoPlex II Local Anesthetic Bolus (Indicate Dose Given): Lidocaine used for local infiltration of skin, Injected in 3-5ml increments after negative blood aspiration and Bupivacaine 0.25% Dose:: 15 ml Additives (Indicate Dose Given): None Ultrasound: Sterile probe cover and gel used Nerve Stimulator: Not Used Paresthesia: None Post Procedure Pain score (0-10): 0 Procedure Tolerated: No Complications Procedure Outcome: Successful Performed By: Rosie Trujillo
[2023-03-14] MEDS: ceFAZolin 2 GM/50 ML BAG IVPB (09:00)
--- NOTE | 2023-03-14 12:22 | ROE_ITS ---
Date of service: 03/14/23 Time of Service: 09:00 Operative Note Operative Note DATE OF PROCEDURE: 03/14/23 PRE-OP DIAGNOSIS: Right Knee Osteoarthritis POST-OP DIAGNOSIS: same PROCEDURE: Right Total Knee Replacement SURGEON: Joseluis Ohara GUITAR REPAIRER: Megan Lyons ANESTHESIA TYPE: Spinal Refer to Anesthesia Record ESTIMATED BLOOD LOSS: 200 PATHOLOGY: none sent TOURNIQUET TIME: 0 COMPLICATIONS: None Patient was transported to: PACU Patient's condition: stable Implants: 1. Depuy Attune Cementless Cruciate Retaining Femoral Component, Size 8 2. Depuy Attune Cementless Fixed Bearing Tibial Component, Size 7 3. Depuy Attune 8x10 CR/FB Poly 4. Depuy Attune Patellar Component, Size 35 Indications: I have seen Johny in clinic for symptoms of knee arthritis, confirmed with radiographic findings. He has exhausted nonoperative methods and was having significant limitations in daily function and desired better function and less pain. I discussed the technical details of a knee replacement. I explained the risks of the procedure to include, but not limited to, bleeding, infection, pain, stiffness, fracture, damage to nerves and vessels, damage to muscles and tendons, loosening, need for repeat procedure, blood clot and cardiopulmonary demise. Despite these risks, Johny elected to proceed. Findings: There was significant signs of arthritis throughout the knee along with significant tearing and degeneration of lateral and medial menisci. There was notable density and contracture of posterolateral soft tissues including popliteus. Procedure Description: Johny was greeted in the preoperative holding area where the correct side was identified and marked. The consent was reviewed with the patient and signed. The history and physical was updated. All questions were answered. Preoperative medications were administered: Acetaminophen 1000mg, Celebrex 400mg, and Gabapentin 300mg. An adductor canal block was then administered by the anesthesia team in the PACU. He was taken back to the operating room. A spinal anesthestic was then administered. The patient was placed into the supine position on the operating room table. A nonsterile tourniquet was placed high onto the leg but only used for cementing. Posts were placed for positioning during the procedure. All bony prominences were well padded. Prophylactic antibiotics in the form of Cefazolin were administered. 1g of Tranxemic Acid was given intravenously within 30 minutes of incision. The right leg was then prepped with Chloraprep and draped in a standard fashion with impervious stockinette. A second prep with Chloraprep was performed prior to application of Iodine impregnated skin protection. A timeout to confirm correct identity, side and site, procedure, allergies, anesthesia, and medical concerns was performed. With the knee in some flexion, a midline incision was made overlying the knee. Full thickness skin flaps were raised once the extensor mechanism was encountered. These were raised medially and laterally. Any bleeding was controlled with electrocautery. Once the extensor mechanism was fully exposed, a medial parapatellar arthrotomy was performed in a flexed position. All bleeding from the arthrotomy and the geniculate arteries was coagulated. A medial subperiosteal peel was performed with electrocautery to the midcoronal plane. The fat pad was removed while keeping the patellar tendon protected. The anterior distal femur synovium was removed for later visualization. The ACL and PCL were resected and the anterior horn of the lateral meniscus was transected. The knee was then flexed with the patella everted. Using a step drill, and based on preoperative templating, the femoral canal was entered. This was done with a step drill without any difficulty. The intramedullary distal femoral cut guide was inserted, set to a 5 degree valgus cut and 9mm cut thickness. The distal femoral cut guide was then held in position and pinned. With the soft tissues protected, the distal cut was performed. This was passed over a few times to ensure a planar cut. I then turned attention to the tibia. The extramedullary guide was placed onto the leg. The distal aspect was slid medial to adjust for position of center of ankle and stay in line with shaft of the tibia. Approximately 3-5 degrees of posterior slope was kept in the proximal cutting guide. The center of the guide was aligned with the PCL. The stylus was used to assess cut thickness. The medial side, most involved side, was set for a 5mm cut. This was then held in position and pinned into place with 2 additional pins and a cross pin for stability. The medial and lateral collateral ligaments were protected and the cut was performed. With this completed, it was assessed and noted to be of appropriate dimensions. The guide was removed. A spacer block was inserted and the knee was brought into extension. The 8mm spacer block provided full extension, without hyperextension and with stability of both the medial and lateral collateral ligaments was assessed. The pins from the femur and the tibia were then removed. The distal femur was then sized. The anterior stylus was placed onto the lateral ridge of the anterior femur. This indicated a size 8 femur. The external rotation of the guide was adjusted to 3 degrees to match the epicondylar axis, perpendicular to [place]?s line. The 4-in-1 cutting guide was the placed. The posterior medial femur cut was evaluated and appeared of good thickness. The spacer block was inserted underneath the cutting guide and stability was confirmed in 90 degrees of flexion. An didier wing was used to confirm appropriate position of the anterior cut to avoid notching. This cutting guide was ensured to be flush on the cut surface and then pinned into place with headed pins. While protecting the soft tissues, quad tendon, and collateral ligaments, the anterior and posterior cuts were performed with a saw. The central two pins were removed and the posterior and anterior chamfers were cut next. The notch-cutting guide was placed. This was pinned to lateralize the femoral component as much as possible while keeping it flush on the cut surface. This was then pinned into position. A reciprocating saw was used to make the notch cut. A rasp smoothed the cut surfaces. The medial and lateral menisci were removed. A trial femoral component was then inserted, impacted down to the cut surfaces, and the lug holes were drilled. A provisional trial tibial component was placed and the knee was brought through range of motion. The polyethylene was trialed until there was good flexion and extension with excellent stability to the medial and lateral collaterals. The patella was tracking without thumbs. A size 10mm polyethylene component provided the best range of motion and stability with less than 2mm gapping with medial and lateral stress and full extension without significant hyperextension. The tibial cut surface was fully exposed. The tibia was then sized as a 7. The tibia had been previously marked during trialing to correspond to the center of the tibial component to help with rotation. The trial was aligned to this franko, approximately rotated to the medial 1/3rd of the tibial tubercle. The trial was pinned into place. The tibia was prepared with a reamer and a keel punch and lug holes. The knee was then brought into extension and the patella was measured as 24mm. Using the patellar clamp and cut guide, this was resected to a flat surface with at least 13mm of thickness remaining. The size 35 patella fit the best. This was oriented and then clamped into position. The lugs were drilled. The trial components were removed. The final components were opened on the back table. The periosteal and capsular tissues, especially posteriorly, around the knee were then systematically injected with a periarticular cocktail consisting of 246mg of Ropivacaine, 0.5mg of Epinephrine, 0.08mg of Clonidine, and 30mg of Ketorolac, diluted to 100cc. On the back table, with the implants opened, the cement was mixed. One batch of high viscosity cement was prepared with vacuum assistance. After the cement was ready a small amount was placed on the cut surface of the patella and the patellar button was clamped into position and held. While the cement was hardening, the cementless knee components were placed. Starting with the tibial component, the tibia was subluxed anteriorly and the lug holes of the component were lined up. The tibia was then impacted with an impactor and mallet until the tibial component was in contact with the tibia. The final polyethylene component was inserted. Then, the femoral component was inserted. The lug holes were aligned and the component was impacted into position. The knee was irrigated with Surgiphor Betadine solution. This was allowed to sit in the knee for 3 minutes and then it was irrigated out with saline. After the cement had finally cured, approximately 15min, the clamp was removed from the patella and the knee was taken through range of motion. The patella was tracking with a no-thumbs technique. The capsule was then reapproximated with a No. 1 Vicryl at multiple locations. The capsule was finally closed with a No. 2 Stratafix, barbed suture. The second dosing of 1g TXA was started. Deep tissues were then reapproximated with 0 Vicryl and 2-0 Vicryl. The skin was closed with a running 3-0 Monocryl in a subcuticular fashion. This was reinforced with skin glue. A Mepilex silver dressing was applied along with a [id number] SALOME wrap. A CryoCuff was applied. Johny was transferred to the hospital bed without difficulty an suffering no apparent complication. Johny has a good prognosis. Physical therapy will start today and without restrictions, weight-bearing as tolerated. Aspirin 81mg BID will be used for DVT prophylaxis.
--- NOTE | 2023-03-14 12:22 | W.PM.DS.N ---
Date of service: 03/14/23 Time of Service: 12:22 DS: Diagnosis Discharge Diagnosis (1) Osteoarthritis of right knee: Status: Chronic Discharge Plan Disposition Patient Disposition: Home Condition: Good Discharge Details Reason For Visit: Right knee DJD Attending Provider: Joseluis Ohara Primary Care Provider: Michael Sow Palermo Meds and New Rx's Prescriptions: New aspirin 81 mg tablet,delayed release (DR/EC) 81 mg PO BID 30 Days Qty: 60 0RF acetaminophen 500 mg tablet 1,000 mg PO Q8H PRN Qty: 90 0RF Rx Instructions: Take two tablets up to every 8 hours as needed for pain pantoprazole 40 mg tablet,delayed release (DR/EC) 40 mg PO DAILY Qty: 14 0RF dexamethasone 4 mg tablet 4 mg PO DAILY Qty: 2 0RF Rx Instructions: Take one tablet once daily for two days docusate sodium [Colace] 100 mg capsule 100 mg PO BID Qty: 30 0RF gabapentin 300 mg capsule 300 mg PO QHS Qty: 14 0RF Rx Instructions: Take one tablet at bedtime oxycodone 5 mg tablet 5 mg PO Q4H PRNQty: 18 0RF Rx Instructions: Take one tablet up to every 4 hours as needed for severe postoperative pain meloxicam 15 mg tablet 15 mg PO DAILY Qty: 30 1RF Rx Instructions: Take one tablet daily for pain and inflammation Continued Praluent Pen 150 mg/mL pen injector 150 mg subcut Q2W Rx Instructions: inject into abdomen, thigh, or upper arm (deltoid muscle); rotate sites valsartan 160 mg tablet 160 mg PO DAILY metoprolol succinate 50 mg tablet extended release 24 hr 50 mg PO DAILY nitroglycerin [Nitrostat] 0.4 mg tablet, sublingual 0.4 mg sublingual Q5M PRN Rx Instructions: do not exceed 3 doses per episode ezetimibe 10 mg tablet 10 mg PO DAILY Discontinued aspirin [Adult Aspirin Regimen] 81 mg tablet,delayed release (DR/EC) 81 mg PO DAILY Discharge Instructions Additional Instructions: Total Knee Discharge Instructions Activity: The most important activity is to walk and to work on gentle motion (both flexion and extension). You should try to take short walks a few times a day. It is important that when resting you work on keeping the knee straight. Avoid putting a pillow behind the knee as this will encourage flexion. Work on range of motion exercises as provided by Physical Therapy. - Start outpatient physical therapy within 2 weeks. - You should wear the NAZIA hose on both legs for 2 weeks. You may remove these at night. You may also use any compression sock in place of the NAZIA hose. - Utilize [employer] to review exercises, see videos on exercises and obtain basic information pertaining to your surgery and your recovery. Dressing: Remove the Satish wrap by 2 days after your surgery and put on the NAZIA stocking given to you from the hospital. Keep the surgical dressing (underneath the SATISH wrap) in place for at least one week. After the first week it may be removed and replaced with light gauze and tape or nothing. The wound and dressing may get wet after 3 days but avoid soaking the dressing or otherwise it will need to be changed. Many people prefer covering the dressing with cling wrap (saran wrap) to minimize it from getting soaked. If it gets wet, just pat dry. If it starts to peel off then it will need to be changed. Medications: - You should take Tylenol and anti-inflammatory Meloxicam as your primary pain control medications. If the Meloxicam is too expensive or not covered, please call the office for another alternative (Advil/Ibuprofen or Naproxen/Aleve) - You have been prescribed a stronger pain medication Oxycodone for breakthrough pain, take as needed as prescribed. - You have also been prescribed a stomach acid reduction agent Pantoprozole to help reduce stomach acid and reflux. - You have been prescribed Gabapentin to take at night for restlessness and nerve pain. - You will be taking Aspirin 81mg twice a day for DVT prevention unless instructed otherwise. - You have also been prescribed Decadron to take to control post-operative nausea and pain. You will start this tomorrow. - If you have constipation you should take Colace (which has been prescribed) or Miralax (which is available [id number]). It takes most people 3-4 days to have a bowel movement. Follow-up: 2 weeks If you have any acute concerns or questions, please do not hesitate to contact the office at [phone]. You may contact Dr. Ohara with any questions after hours through the hospital at [phone] or on his cell phone at [phone]. Stand Alone Forms: Anesthesia Discharge Inst., Martin.Nerve Block Instructions, Patria Deluna ([facility]U) Referrals: Joseluis Ohara MD [ [facility] STAFF PHYSICIAN] - Equipment/Supplies: Walker Activity:: Elevate Remove Dressings/Wound Care:: Do Not Remove Shower/Bathe:: 72 hours and Cover Diet:: As Tolerated Discharge Orders Discharge Orders: Discharge Order (Routine); Ordered 03/14/23 Ordered By: Megan Lyons DS: Summary Time Spent with Patient providing and/or coordinating discharge services: Less than 30 minutes Status at Discharge Functional status at discharge: uses cane/walker Overall status at discharge: patient is progressing back to baseline Mental Status: mental status grossly normal Speech and Movement: speech and movement normal Mood: congruent mood Affect: normal affect Exam Psych Mental Status: mental status grossly normal Speech and Movement: speech and movement normal Mood: congruent mood Affect: normal affect DS: Data Vitals/I&O Vitals and I&O: Vital Signs Temperature 97.9 F 03/14/23 08:21 Temperature Source Skin 03/14/23 08:21 Pulse 60 03/14/23 08:21 Pulse Rhythm Regular 03/14/23 07:23 Respiratory Rate 22 03/14/23 08:21 Respiratory Depth Deep 03/14/23 07:23 Blood Pressure 165/90 H 03/14/23 08:21 Blood Pressure Mean 115 03/14/23 08:21 Blood Pressure Position Supine 03/14/23 08:21 Pulse Oximetry 98 03/14/23 08:21 Oxygen Delivery Method Room Air 03/14/23 08:21 Oxygen Flow Rate 0 03/14/23 08:21 Pain Level 0 03/14/23 08:21 Comment Time out performed with Michelle Trujillo CRNA and Herminia Early RN. report to garbage pick up man Arely Davenport at 0800. Block completed at 0828, no complications noted. 03/14/23 08:21 Intake & Output 03/13/23 03/13/23 03/14/23 11:59 23:59 11:59 Weight 182 lb 0.006 oz 180 lb 12.465 oz PFSH All Active Problems Osteoarthritis of right knee (Chronic) DEPO MEDROL 05/19/22; 01/27/22 ASCVD (arteriosclerotic cardiovascular disease) (Acute) Osteoarthritis (Chronic) HTN (hypertension) (Chronic) Left knee pain (Acute) Hip arthritis (Acute) Statin intolerance (Acute) Hyperlipemia (Acute) Non-STEMI (non-ST elevated myocardial infarction) (Acute) 01/2019 [facility] [place] 2 [place] Chest pain (Acute) Medical History Tubular adenoma of colon (04/19/16) Surgical History 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 Status post arthroscopy of right knee x2 Colonoscopy - IV Sedation (04/19/16) Appendectomy Family History Mother Breast cancer Social History Smoking/Tobacco Use Status: Former Tobacco Use Quit Date: 05/08/81 Smoking risk assessment performed?: Yes Alcohol Intake: current Alcohol Intake frequency: 3 or more drinks per day Alcohol type: hard liquor Drug use: Never Substance use type: does not use Housing: house Current gender identity: male Do you feel safe at home: Yes Do you feel safe in your relationship?: Yes Time Spent with Patient Time Spent with Patient: <45 minutes Time was spent: obtaining and/or reviewing separately otained hiistory, indepentently interpreting results, counseling the patient and care coordination
--- NOTE | 2023-03-14 13:10 | PT.INIE ---
PT Notes Visit Reasons: Right knee DJD Physical Therapy Day Surgery Initial Evaluation Date: 03/14/2023 Referring Doctor: GEORGE Mercado PT Orders: PT CONSULT: S/P Ortho Surgery Precautions: WBAT on right LE with AD. Patient Profile/Admitting Diagnosis: Artur is a 67-year-old male with degenerative joint disease of the right knee and is status post right total knee arthroplasty on postoperative day 0. 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 Family very supportive. Independent with all aspects of ADLs prior to surgery. Equipment Owned/DME: Bilateral axillary cructhes Subjective: Reports 1/10 pain in the R knee. Denies headache, chest pain, and lightheadedness throughout session. Amazed at how well and how very much controlled pain is with weight bearing compared to before surgery. Did point out inability to lift foot up beyond neutral, confirms that he did have a nerve block earlier. Objective: General Observation: Supine in bed. SALOME wraps to right LE. Cryocuuff to right knee. TEDS to left leg. Mental Status: A and O x 4 Pain: As above ROM: Right Lower Extremity: Hip flexion WFL. Hip abduction WFL. Knee flexion 20 degrees to 100 degrees. Knee extension -20 degrees. Ankle dorsiflexion to neutral only. Ankle plantarflexion WFL. Left Lower Extremity: Hip flexion WFL. Hip abduction WFL. Knee flexion WFL. Ankle dorsiflexion WFL. Ankle plantarflexion WFL. Strength: Right Lower Extremity: Hip flexors 4/5. Hip abductors 4/5. Knee flexors 3-/5. Knee extensors 3-/5. Ankle dorsiflexors 3-/5. Ankle plantarflexors 4-/5. Left Lower Extremity:Hip flexors 5/5. Hip abductors 5/5. Knee flexors 5/5. Knee extensors 5/5. Ankle dorsiflexors 5/5. Ankle plantarflexors 5/5. Sensation: Intact as to pain and light pressure in B LE however did report some numbness in the anterior part of the knee Bed Mobility/Transfers: Supine to sit stand by assist Sit to stand stand by assist with minimal cues provided to use B UE for support Stand to sit stand by assist with minimal cues provided to use B UE for support Bed to chair stand by assist with minimal cues provided to use B UE for support and for safe AD management Gait: Facilitated safe and correct performance of level surface ambulation covering a distance of 150 feet with step through heel toe gait pattern requiring only standby assist using the front wheeled walker; cues provided for limb advancement, walker management, and increased knee flexion during swing phase. Stairs: Guided patient with safe and correct negotiation of 6 x 4 inch steps and 4 x 6 inch steps holding onto bilateral rails with step to gait pattern requiring standby assist with minimal verbal cues provided to increase flexion on the right during each ascent. Balance: Static Sitting: Normal Dynamic Sitting: Normal Static Standing: Fair Dynamic Standing: Fair Special Tests: Mobility Limitations Standardized Measure [facility] 6 clicks Basic Mobility Inpatient Short Form: Raw Score: 24 CMS Score: 0% deficit Informed Consent/Education: Patient instructed in purpose of PT consult. Packet containing TKA exercise protocol has been given to patient. Education and training on initial set of exercises that can be done at home have been completed with patient. Trained patient with correct performance of exercises below to maximize motor control, joint flexibility, soft tissue extensibility of the R knee musculature: Access Code: [email or web address] URL: [email or web address] Date: 03/14/2023 Prepared by: Madison Booth Exercises - Supine Quad Set - 1 x daily - 7 x weekly - 1 sets - 10 reps - 5 hold - Supine Heel Slide - 1 x daily - 7 x weekly - 1 sets - 10 reps - 5 hold - Supine Ankle Pumps - 1 x daily - 7 x weekly - 1 sets - 10 reps - 5 hold - Small Range Straight Leg Raise - 1 x daily - 7 x weekly - 1 sets - 10 reps - 5 hold - Seated July - 1 x daily - 7 x weekly - 1 sets - 10 reps - 5 hold Assessment: Patient requires the use of a front wheeled walker for all mobility ADL performance to maximize independence and reduce fall risk. Patient presents with clinical signs and symptoms consistent with current/admitting diagnoses that have resulted to mobility limitations, gait instability, generalized weakness, and impairment of motor control as demonstrated by the following impairment level findings: 1. Decreased strength to R knee major muscle groups 2. Impaired standing balance 3. Limitation of joint range of motion in R knee Impairments are contributing to the following functional limitations: 1. Inability to safely ambulate without assistive device 2. Increase completion time for mobility ADL performance 3. Increased fall risk Patient is assessed as a 15032 moderate complexity based on the following: History: 67-year-old male with impairment level findings, functional limitations, and past medical history as indicated above Examination: Demonstrable impairment in strength, balance, and mobility level with underlying impairments and functional limitations as documented above Presentation: Evolving Decision Makin moderate complexity Goals: N/A. PT evaluation and 1-2 treatment sessions only for functional mobility training using recommended AD and for HEP instruction. Plan of Care/Treatment Plan: N/A. PT evaluation and 1-2 treatment session only for functional mobility training using recommended AD and for HEP instruction. DISCHARGE RECOMMENDATIONS: Home when medically cleared by orthopedic surgeon. Recommend outpatient PT services in order to optimize functional mobility outcomes and facilitate return to independent community ambulation without an assistive device. TREATMENT CODE/TIME: 58827 x 29 minutes beginning at 13:10 PM. Thank you for the opportunity to participate in the care of this patient. Madison Booth PT, DPT, CLT [facility] [place], [place]
--- NOTE | 2023-03-14 13:25 | W.ANESPOSTOP ---
Postoperative Evaluation Date, Time and Location Date Performed: 03/14/23 Time Performed: 12:50 Patient Location: Day Surgery Unit Vital Signs Most Recent Imported Vital Signs: Most Recent Vital Signs Temp Pulse Resp BP Pulse Ox 36.3 C L 61 16 156/99 H 100 03/14/23 11:38 03/14/23 11:38 03/14/23 11:38 03/14/23 11:38 03/14/23 11:38 Pain Score Most Recent Pain Score: Most Recent Pain Score Pain Level 0 03/14/23 11:38 Assessment Mental Status: Awake (Alert & Oriented to Patient Baseline) Airway and Respiratory Function: Patent airway with normal (patient baseline) respiratory exam Cardiovascular Function: Hemodynamically Stable Hydration Status: Adequately Hydrated Nausea & Vomiting: No Nausea or Vomiting Pain: Pt. Denies Any Pain Peripheral Nerve Block: Regional nerve block not resolved at time of post operative discharge Postoperative Comments:: Reddish/purple blotches noted on dependent areas of bilateral arms. Patient states that his skin does discolor easily if sedentary or cold. Denies any discomfort related to this
== END 2023-03-14 14:19 | disposition home or self-care (01) ==
PROVIDERS: PCP Internal Medicine; Visit Provider Student in an Organized Health Care Education/Training Program
PROC: (CPT 27447; principal; 2023-03-14 09:30)
DX: M17.11 Unilateral primary osteoarthritis, right knee (principal); I10 Essential (primary) hypertension; I25.10 Atherosclerotic heart disease of native coronary artery without angina pectoris; E78.5 Hyperlipidemia, unspecified; I25.2 Old myocardial infarction
CPT/HCPCS: 27447; C1776; 76942; 97162; J0690; J1100; J2001; J2250; J2405; J2704

== ENCOUNTER 2023-03-27 13:44 | Outpatient (CLI) | payer MEDICARE, BC, SELFPAY ==
--- NOTE | 2023-03-27 08:30 | DI.RAD_ITS ---
Exam(s) XR STANDING ALIGNMENT XR KNEE RT 1V EXAM: XR STANDING ALIGNMENT CLINICAL HISTORY: 1ST POST OP S/P R TKA. TECHNIQUE: 2D digital imaging was performed. Standing AP views were performed from the pelvis throu gh the ankles. COMPARISON: CR XR STANDING ALIGNMENT from 02/23/2023 CR XR KNEE RT 1V from 02/23/2023 CR XR KNEE RT 1V from 03/27/2023 FINDINGS: BONES: No acute fracture is present. No bony destructive lesion is seen. Leg length discrepancy: JOINTS: Knees: Left total knee prosthesis has been placed since the prior exam. Satisfactory alignme nt. Left femoral tibial joint spaces are maintained. The ankle joints are unremarkable. The hip joints show degenerative changes, left greater than right.. SOFT TISSUE: Soft tissue swelling anterior to the left knee. Vascular calcifications. IMPRESSION: Right total knee prosthesis with satisfactory alignment. No significant leg length discrepancy. DATA REPOSITORY: RADIATION DOSE DELIVERED:
== END 2023-03-27 13:45 | disposition home or self-care (01) ==
LOC: DIORS 13:44
PROVIDERS: PCP Internal Medicine; Referring Provider Internal Medicine; Visit Provider Student in an Organized Health Care Education/Training Program
DX: Z96.651 Presence of right artificial knee joint (principal); Z47.1 Aftercare following joint replacement surgery
CPT/HCPCS: 73560; 77073

== ENCOUNTER → 2023-04-24 09:42 | Outpatient (BNVA) | payer MEDICARE, BC, SELFPAY | PROVIDERS: PCP Internal Medicine; Visit Provider Student in an Organized Health Care Education/Training Program | DX: Z47.1 Aftercare following joint replacement surgery (principal); Z96.651 Presence of right artificial knee joint ==

== ENCOUNTER 2023-09-11 08:57 | Outpatient (CLI) | payer MEDICARE, BC, SELFPAY ==
[2023-09-11 11:02] LABS: Anion Gap 9.2 mmol/L (3-11); BUN 15 mg/dL (7-18); CO2 31.8 mmol/L (21.0-32.0); CREATININE 1.2 mg/dL (0.70-1.30); Calcium 9.7 mg/dL (8.5-10.1); Chloride 101 mmol/L (98-107); Estimated GFR 65.06 (mL/min/1.73m2); Glucose 98 mg/dL (74-106); Potassium 4.6 mmol/L (3.5-5.1); Sodium 142 mmol/L (136-145)
== END 2023-09-11 08:58 | disposition home or self-care (01) ==
LOC: LBO 08:57
PROVIDERS: PCP Internal Medicine; Visit Provider Family Medicine
DX: I10 Essential (primary) hypertension (principal)
CPT/HCPCS: 36415; 80048

== ENCOUNTER → 2024-01-02 07:56 | Outpatient (BNVA) | payer MEDICARE, BC, SELFPAY | PROVIDERS: PCP Family Medicine; Referring Provider Family Medicine; Visit Provider Surgery | DX: Z12.11 Encounter for screening for malignant neoplasm of colon (principal); Z86.010 Personal history of colon polyps ==

== ENCOUNTER 2024-01-22 07:29 | Day surgery (SDC) | payer MEDICARE, BC, SELFPAY ==
--- NOTE | 2024-01-21 15:22 | W.PM.DSUDISC ---
Date of service: 01/22/24 Time of Service: 09:51 Discharge Plan Disposition Patient Disposition: Home Condition: Good Discharge Details Reason For Visit: screening colonoscopy Attending Provider: Johny Jackson Primary Care Provider: Dalia Leyva Home Meds and New Rx's Prescriptions: Continued multivitamin [Daily Multi-Vitamin] Tablet 1 tab PO DAILY valsartan 160 mg tablet 160 mg PO DAILY aspirin 81 mg tablet,delayed release (DR/EC) 81 mg PO DAILY metoprolol succinate 50 mg tablet extended release 24 hr 50 mg PO DAILY nitroglycerin [Nitrostat] 0.4 mg tablet, sublingual 0.4 mg sublingual Q5M PRN Rx Instructions: do not exceed 3 doses per episode ezetimibe 10 mg tablet 10 mg PO DAILY Repatha SureClick 140 mg/mL pen injector 140 mg SUBCUT DIRECTED Discontinued polyethylene glycol 3350 17 gram/dose powder 238 g PO ONCE Qty: 238 0RF Rx Instructions: take per colonoscopy instructions bisacodyl [Dulcolax (bisacodyl)] 5 mg tablet,delayed release (DR/EC) 5 mg PO ONCE Qty: 4 0RF Rx Instructions: take per colonoscopy instructions Discharge Instructions Instructions: Colon polyps, Diverticulosis Additional Instructions: Johny, it was very nice seeing you today, and I hope you are comfortable during the procedure. Everything went very smoothly. I did find to remove for polyps in total. These will all be sent off to the pathologist for their review, as the type of polyp that is detected often times influences the timing of the next colonoscopy. Those results usually take a week or 2 to get back, and then the office will be in touch with recommendations for your next colonoscopy. Incidentally, you also have some diverticulosis. Diverticula are little weak spots in the muscular part of the colon wall. They typically accumulate as we get older. Keeping plenty of fiber in your diet, staying well-hydrated, and avoiding constipation are the main parts of taking care of it. I will attach a little bit of information here about diverticulosis as well as colorectal polyps. If you have any questions in the meantime, please do not hesitate to call. 1. If tolerated, consume a soft, low fiber diet for 1-2 days. [address] Do not drive, drink alcohol, operate machinery, make critical decisions, or do activities that require coordination or balance for 24 hours. 3. Because air was put into your colon during the procedure, expelling air from your rectum (passing gas or farting) is normal. 4. You may not have a bowel movement for 1-3 days because of the colonoscopy prep. This is normal. 5. Go directly to the emergency room if you notice any of the following: Develop chills (warm to touch), or if you have a thermometer and your temperature is above 101 Difficulty breathing or difficultly swallowing Persistent vomiting Severe abdominal pain, other than gas cramps Severe chest pain Black, tarry stools Any bleeding ? exceeding one tablespoon 6. Call your physician if the site where your intravenous was started becomes red, swollen, painful, and warm to touch. 7. Your physician has reviewed your pre-procedure medications. Please continue to take those medications as previously ordered. You will be given specific information/education regarding any changes to your medications before leaving. Activity:: Activity as Tolerated Diet:: As Tolerated Discharge Orders Discharge Orders: Discharge Order (Routine); Ordered 01/21/24 Ordered By: Johny Jackson DS: Diagnosis Discharge Diagnosis (1) Encounter for screening colonoscopy: Status: Acute Asessment and Plan: Follow-up on polypectomy results
--- NOTE | 2024-01-21 15:24 | COLE_ITS ---
Date of service: 01/22/24 Time of Service: 09:52 Colonoscopy Report Date of procedure: 01/22/24 Pre-op diagnosis general: screening colonoscopy Post-op diagnosis procedure note: other (Diverticulosis, polyps) Procedure: colonoscopy with polypectomy Surgeon: Johny Jackson Anesthesia Type: General:No Airway Estimated blood loss (mL): 5 Pathology: other (0.25 cm rectal polyps x 2, 0.5 cm cecal polyps x 2) Complications: None Disposition: same day Indications: Artur is a 68 year old man who needs his next screening colonoscopy Prep: Miralax/Dulcolax Procedure Start Time: :27 Procedure End Time: :47 Retraction Time: 11 Findings: 0.25 cm rectal polyps x 2, 0.5 cecal polyps x 2 Procedure Description: After the induction of anesthesia, and with the patient in left lateral decubitus position, I began by performing an external anorectal exam.? Perineum and skin were normal, as was the anal verge.? There was no evidence of external hemorrhoids.? Next, I performed a digital rectal exam.? I did not appreciate any abnormal findings.? Next, I advanced a colonoscope into the rectal vault.? I performed retroflexion.? This appeared normal.? In the midportion of the rectal vault were 2 polyps. Narrowband imaging was used to assist with analysis here. Clinical features were most consistent with hyperplastic polyps, but to be safe, I did remove them today. Cold forceps biopsies were used to remove these 2 polyps. There were minimal bleeding from the polypectomy sites, and these were sent as a single specimen. Using insufflation, I then advanced the colonoscope beyond the rectal folds and into the sigmoid colon before advancing towards the cecum.? There is diverticulosis involving all segments of the colon.? The scope was noted to be in the cecum by identification of the ileocecal valve and appendiceal orifice.? Within the cecum were 2 more polyps. These were both pedunculated. Each was about 0.5 cm. These were both removed with cold snare polypectomy without any difficulty. I then began withdrawing the colonoscope using repeated irrigation as necessary for full evaluation of the colonic mucosa. ?Once the scope was withdrawn to the level of the rectum, great care was taken to examine portions of the rectal folds.? Finally, the scope was withdrawn and the patient was brought to the same-day surgery recovery unit as the anesthetic wore off. ?The findings and instructions were shared with the patient prior to discharge. [place] Bowel Prep [place] Bowel Prep Right Colon: 3 Left Colon: 3 Transverse Colon: 3 Total Score: 9
[2024-01-22 07:49] VITALS: BP 148/88; PULSE 74; RESP 18; TEMP 36.3; O2SAT 97
[2024-01-22] MEDS: Lactated Ringers 1,000 ML 80 ML IV ×2 (08:01→09:33)
--- NOTE | 2024-01-22 08:33 | ANES.PREOP_ITS ---
General Info Date of Service Date Performed: 01/22/24 Height: 5 ft 10 in Weight: 80.2 kg Body Mass Index (BMI): 25.3 Surgical Procedure: Operation Date: 01/22/24 09:05 Proposed Procedure Side Surgeon varghese Jackson MD Meds Allergies and Home Medications Allergies Allergy/AdvReac Type Severity Reaction Status Date / Time atorvastatin AdvReac Severe myalgia Verified 01/22/24 07:49 Home Medication ?Medication ?Instructions ?Recorded ezetimibe 10 mg tablet 10 mg PO DAILY 07/13/21 metoprolol succinate 50 mg 50 mg PO DAILY 07/13/21 tablet,extended release 24 hr nitroglycerin 0.4 mg sublingual 0.4 mg sublingual Q5M PRN 07/13/21 tablet (Nitrostat) valsartan 160 mg tablet 160 mg PO DAILY 05/19/22 aspirin 81 mg tablet,delayed 81 mg PO DAILY 04/24/23 release multivitamin (Daily Multi-Vitamin 1 tab PO DAILY 01/02/24 tablet) evolocumab 140 mg/mL subcutaneous 140 mg subcut DIRECTED 01/19/24 pen injector (Sarah Griffin) Current Visit Medications: Current Medications Generic Name Dose Route Start Last Admin Trade Name Freq PRN Reason Stop Dose Admin Hyoscyamine Sulfate 0.125 mg 01/21/24 15:25 Hyoscyamine 0.125 Mg Sl/Oral/Chew SL 02/20/24 15:24 DIRECTED PRN Ringer's Solution 1,000 mls @ 80 mls/hr 01/22/24 06:00 01/22/24 08:01 IV 02/18/24 23:59 80 mls/hr INFUSION TERE Administration IV Miscellaneous Supplies 1 each 01/22/24 06:00 Iv Access IV 02/18/24 23:59 DIRECTED TERE Ondansetron HCl 4 mg 01/21/24 15:25 Ondansetron 4 Mg/2 Ml Vial IVP 02/20/24 15:24 Q4H PRN PRN Nausea / Vomiting Sodium Chloride 0 ml 01/22/24 06:00 Normal Saline Flush 10 Ml Syr IV 02/18/24 23:59 PRN PRN Sodium Chloride 0 ml 01/22/24 06:00 Normal Saline 10 Ml Vial IJ 02/18/24 23:59 DIRECTED PRN Sterile Water 0 ml 01/22/24 06:00 Water,Injection,Sterile 10 Ml Vial IJ 02/18/24 23:59 DIRECTED PRN PFSH Active Problems Active Problems: Problem Status Onset Code Encounter for screening colonoscopy Acute Z12.11 Hearing loss Acute H91.90 ASCVD (arteriosclerotic cardiovascular disease) Acute I25.10 Osteoarthritis Chronic M19.90 HTN (hypertension) Chronic I10 Left knee pain Acute M25.562 Hip arthritis Acute M16.10 Statin intolerance Acute Z78.9 Hyperlipemia Acute E78.5 Non-STEMI (non-ST elevated myocardial infarction) Acute I21.4 Chest pain Acute R07.9 Medical History Medical History (Updated 01/21/24 @ 15:23 by Johny Jackson MD) Tubular adenoma of colon (04/19/16) Surgical History Surgical History (Updated 04/24/23 @ 10:18 by GEORGE Hernandez) History of total right knee replacement (03/14/23) 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 Status post arthroscopy of right knee x2 Colonoscopy - IV Sedation (04/19/16) Appendectomy Tobacco Smoking/Tobacco Use Status: Former Tobacco Use Alcohol Alcohol Intake: current Alcohol intake frequency: 3 or more drinks per day Alc ohol type: hard liquor Substance Use Substance use: Never Substance use type: does not use Vital Signs and Lab Results Vital Signs Most Recent Vital Signs in EMR: Most Recent Vital Signs Temp Pulse Resp BP Pulse Ox 36.3 C L 74 18 148/88 H 97 01/22/24 07:49 01/22/24 07:49 01/22/24 07:49 01/22/24 07:49 01/22/24 07:49 Lab Results Blood Type / Crossmatch: No Data to Display Complete Blood Count: No Data to Display Complete Metabolic Panel: No Data to Display Liver Function Panel: No Data to Display Coagulation Panel: No Data to Display Cardiac Panel: No Data to Display Arterial Blood Gas: No Data to Display Venous Blood Gas: No Data to Display Pancreas Panel: No Data to Display Thyroid Panel: No Data to Display Infectious Disease: No Data to Display Blood Cultures: No Data to Display Toxicology Panel: No Data to Display Imaging and Studies Imaging and Studies Study information below may be from another EMR and interpreted by another provider. Please see original notes in EMR for more complete details. EKG Summary: Conclusion Sinus rhythm...normal P axis, V-rate 50- 99 Abnormal R-wave progression, early transition...QRS area>0 in V2 08/23/21 Anesthesia Assessment and Plan Anesthesia History Personal History: No History of Anesthesia Complications Family History: No Family History of Anesthesia Complications Exercise Tolerance Exercise Tolerance: Metabolic Equivalents>4 Cardiac & Pulmonary Exam Cardiac Exam: Normal S1/S2 Heart Sounds Pulmonary Exam: Clear Bilateral Breath Sounds Implantable Cardiac Device Does patient have a Pacemaker or an ICD?: No Airway Exam Known Difficult Airway: No Mallampati Class: 2 Mouth Opening: Normal (> 3cm) Thyromental Distance: Greater than 3 cm Neck Range of Motion: Full ROM Neck Circumference: Normal Teeth Condition: Normal Dentition and Removable Dentures/Plates Upper (partial) ASA Classification ASA Score: ASA 2 Emergency Case?: No NPO Status NPO Status: NPO Clears >2 hours, Solids >8 hours Anesthesia Plan Resuscitation Status: Full Code Anesthesia Technique: General Anesthesia Airway Planned: Natural Airway Monitors Used: Standard Monitors
[2024-01-22 09:06] VITALS: BMI 25.3
--- NOTE | 2024-01-22 09:29 | BOWEL_PTH ---
PATIENT: Artur Barron LOC: [facility] U#:[id number] AGE/SX: 68/M ROOM: RE01/22/[address]: Johny Jackson MD : [id number] BED: DIS: 01/22/2024 SPEC #: [id number] RECD: 01/22/24 12:42 STATUS: JAVON RE #: [id number] TATIANA: 01/22/24 09:[address]: Johny Jackson DEPT: Surgical Specimen RECD BY: Africa Huerta ENTERED: 01/22/24 12:43 SP TYPE: Bowel OTHR DR: Dalia Leyva Tissues: 1 - BIOPSY BOWEL 2 - BIOPSY BOWEL Procedures: GROSS AND MICRO LEVEL 4 Comments: [id number]
[2024-01-22 09:55] VITALS: BP 114/75; PULSE 65; RESP 16; TEMP 36.1; O2SAT 96
--- NOTE | 2024-01-22 10:02 | W.ANESPOSTOP ---
Postoperative Evaluation Date, Time and Location Date Performed: 01/22/24 Time Performed: 10:02 Patient Location: Day Surgery Unit Vital Signs Most Recent Imported Vital Signs: Most Recent Vital Signs Temp Pulse Resp BP Pulse Ox 36.3 C L 74 18 148/88 H 97 01/22/24 07:49 01/22/24 07:49 01/22/24 07:49 01/22/24 07:49 01/22/24 07:49 Pain Score Most Recent Pain Score: Most Recent Pain Score Pain Level 0 01/22/24 07:49 Assessment Mental Status: Awake (Alert & Oriented to Patient Baseline) Airway and Respiratory Function: Patent airway with normal (patient baseline) respiratory exam Cardiovascular Function: Hemodynamically Stable Hydration Status: Adequately Hydrated Nausea & Vomiting: No Nausea or Vomiting Pain: Pt. Denies Any Pain Peripheral Nerve Block: Patient did not receive a nerve block
[2024-01-22 10:28] VITALS: BP 154/86; PULSE 60; RESP 16; TEMP 36.1; O2SAT 98
== END 2024-01-22 10:45 | disposition home or self-care (01) ==
LOC: SUR 07:29
PROVIDERS: PCP Family Medicine; Visit Provider Surgery
PROC: 0DJD8ZZ Inspection of Lower Intestinal Tract, Via Natural or Artificial Opening Endoscopic (ICD-10-PCS; CPT 45378; principal; 2024-01-22 09:00)
DX: Z12.11 Encounter for screening for malignant neoplasm of colon (principal); D12.0 Benign neoplasm of cecum; K62.1 Rectal polyp
CPT/HCPCS: 45385; 45380; 88305; J2001; J2704

== ENCOUNTER 2024-03-18 15:31 | Outpatient (CLI) | payer MEDICARE, BC, SELFPAY ==
--- NOTE | 2024-03-18 09:45 | DI.RAD_ITS ---
Exam(s) XR KNEE RT 2V AP,LAT EXAM: XR KNEE RT 2V AP,LAT INDICATION: YEARLY F/U RIGHT TKA. COMPARISON: CR XR KNEE RT 1V from 03/27/2023 TECHNIQUE: 2D digital imaging was performed. Two views. FINDINGS: Stable alignment of total knee prosthesis. No abnormal surrounding bony lucencies. Decreased anterior soft tissue swelling. Decreased joint effusion. DATA REPOSITORY: RADIATION DOSE DELIVERED:
== END 2024-03-18 15:32 | disposition home or self-care (01) ==
LOC: DIORS 15:32
PROVIDERS: PCP Family Medicine; Visit Provider Student in an Organized Health Care Education/Training Program
DX: Z47.1 Aftercare following joint replacement surgery (principal); Z96.651 Presence of right artificial knee joint
CPT/HCPCS: 99213; 73560

== ENCOUNTER 2024-10-03 09:05 | Outpatient (REF) | payer MEDICARE, BC, SELFPAY ==
[2024-10-03 16:00] LABS: Anion Gap 4.8 mmol/L (3-11); BUN 27 mg/dL (7-18); CO2 32.2 mmol/L (21.0-32.0); CREATININE 1.3 mg/dL (0.70-1.30); Calcium 9.9 mg/dL (8.5-10.1); Calculated LDL 95 mg/dL (<100); Chloride 102 mmol/L (98-107); Cholesterol 211 mg/dL (<200); Estimated GFR 58.73 (mL/min/1.73m2); Glucose 122 mg/dL (74-106); HDL Cholesterol 105 mg/dL (>or=40); Sodium 139 mmol/L (136-145); Triglyceride 59 mg/dL (<150)
[2024-10-03 23:21] LABS: PSA, Screening 3.4 ng/mL (<=6.5)
[2024-10-04 10:20] LABS: Hepatitis C Ab w Rflx HCV PCR Negative (Negative)
[2024-10-05 12:34] LABS: Lipoprotein (a) 112 nmol/L (<75)
== END 2024-10-03 09:06 | disposition home or self-care (01) ==
LOC: NCHCN 09:05
PROVIDERS: PCP Family Medicine; Visit Provider Family Medicine
DX: I10 Essential (primary) hypertension (principal); Z12.5 Encounter for screening for malignant neoplasm of prostate; E78.01 Familial hypercholesterolemia; Z11.59 Encounter for screening for other viral diseases
CPT/HCPCS: 80048; 80061; 83695; 84153; 86803

== ENCOUNTER 2025-04-11 09:18 | Outpatient (REF) | payer MEDICARE, BC, SELFPAY ==
[2025-04-11 15:35] LABS: HCT 43.5 % (40.0-50.0); HGB 14.7 g/dL (13.5-17.5); MCH 33.3 pg (27.0-33.0); MCHC 33.8 % (32.0-36.0); MCV 99 fL (80-95); MPV 10.6 fL (8.0-11.0); Platelet Count 184 10^3/uL (130-400); RBC 4.41 10^6/uL (4.36-5.78); RDW 12.0 % (11.8-14.1); RDW-SD 43.8 fL; WBC 6.06 10^3/uL (4.4-10.8)
[2025-04-11 17:06] LABS: Hemoglobin A1C 5.4 % (<5.7)
[2025-04-11 17:28] LABS: ALT 25 U/L (10-49); AST 25 U/L (<34); Albumin 4.5 g/dL (3.2-5.0); Alkaline Phosphatase 54 U/L (46-116); Anion Gap 8.9 mmol/L (3-11); BUN 21 mg/dL (9-23); Bilirubin, Total 0.80 mg/dL (0.2-1.2); CO2 31.1 mmol/L (20.0-31.0); Calcium 10.5 mg/dL (8.3-10.6); Chloride 102 mmol/L (98-107); Cholesterol 176 mg/dL (<200); Glucose 102 mg/dL (74-106); HDL Cholesterol 88 mg/dL (>40); Potassium 5.2 mmol/L (3.5-5.1); Sodium 142 mmol/L (136-145); Total Protein 7.5 g/dL (5.7-8.2)
== END 2025-04-11 09:19 | disposition home or self-care (01) ==
LOC: NCHCN 09:18
PROVIDERS: PCP Family Medicine; Visit Provider Family Medicine
DX: I25.10 Atherosclerotic heart disease of native coronary artery without angina pectoris (principal); Z13.1 Encounter for screening for diabetes mellitus; I10 Essential (primary) hypertension
CPT/HCPCS: 80053; 80061; 85027; 83036